=== PATIENT | female | born 1980 | race African-American/Black ===

== ENCOUNTER 2020-04-12 15:37 | Inpatient (IN) | payer OTHER ==
[2020-04-12] MEDS ORDERED: SODIUM CHLORIDE 1,000 ML IV STA (16:26)
[2020-04-12] MEDS ORDERED: morphine CARPU-JECT 2 MG/1 ML DISP.SYRIN IVPUSH ONE (16:28)
--- NOTE | 2020-04-12 16:55 | PDOC ---
History of Present Illness - General Chief Complaint: Sickle Cell Crisis Stated Complaint: SCC Time Seen by Provider: 04/12/20 16:24 History Source: Patient Exam Limitations: No Limitations - History of Present Illness Initial Comments: 04/12/20 16:54 40-year-old female presents to ED with sickle cell crisis. Patient states currently is having pain greater in her lower extremities but also has pain in her back and bilateral hands. Patient states last crisis was approximately 3 months ago and was treated with Dilaudid and ketamine. Patient denies chest pain, shortness of breath, fever, chills. Patient states has been on hydroxyurea but has lacked fluid intake patient denies menstruation currently and states last crisis required admission. Is this a multiple visit Asthma Patient?: No Timing/Duration: constant Severity: moderate Associated Symptoms: reports: other Past History - Travel History Traveled outside of the country in the last 30 days: No Close contact w/someone who was outside of country & ill: No - Medical History Allergies/Adverse Reactions: Allergies Allergy/AdvReac Type Severity Reaction Status Date / Time No Known Allergies Allergy Verified 04/12/20 15:43 COPD: No Other medical history: SICKLE CELL, BONE MARROW, FIBRO, ARTHRITIS - Immunization History Immunization Up to Date: No - Psycho-Social/Smoking History Patient Lives Alone: No Smoking History: Never smoked - Substance Abuse Hx (Audit-C & DAST Scrn) How often the patient has a drink containing alcohol: Never Score: In Men: 4 or > Positive; In Women: 3 or > Positive: 0 Screen Result (Pos requires Nsg. Audit-10AR): Negative In the last yr the pt used illegal drug/Rx for NonMed reason: No Score: Yes response is considered Positive: 0 Screen Result (Positive result requires Nsg. DAST-10): Negative Review of Systems - Review of Systems Able to Perform ROS?: No Is the patient limited Albanian proficient: No Constitutional: Yes: Weakness HEENTM: No: Symptoms Reported Respiratory: No: Symptoms reported Cardiac (ROS): No: Symptoms Reported ABD/GI: Yes: Poor Fluid Intake : No: Symptoms Reported Musculoskeletal: Yes: Joint Pain Integumentary: No: Symptoms Reported Neurological: No: Symptoms reported Endocrine: No: Symptoms Reported *Physical Exam - Vital Signs Last Vital Signs Temp Pulse Resp BP Pulse Ox 98.0 F 111 H 20 108/62 98 04/12/20 15:43 04/12/20 15:43 04/12/20 15:43 04/12/20 15:43 04/12/20 15:43 - Physical Exam General Appearance: Yes: Nourished, Appropriately Dressed. No: Apparent Distress HEENT: positive: EOMI, [place], Pharynx Normal (dry oral cavity), Pale Conjunctivae Neck: positive: Supple Respiratory/Chest: positive: Lungs Clear, Normal Breath Sounds. negative: Respiratory Distress, Accessory Muscle Use Cardiovascular: positive: Regular Rhythm, Tachycardia. negative: Murmur Gastrointestinal/Abdominal: positive: Soft. negative: Tenderness Extremity: positive: Normal Inspection Integumentary: positive: Normal Color, Warm, Moist Neurologic: positive: Motor Strength 5/5 (ambulatory) ED Treatment Course - LABORATORY CBC & Chemistry Diagram: 04/12/20 16:32 04/12/20 16:32 Medical Decision Making - Medical Decision Making 04/12/20 16:59 Chief complaint: Sickle cell crisis with joint pain greater in the lower extremities patient requesting Dilaudid and ketamine. Exam: Patient appears dry, conjunctiva pale, slightly tachycardic but otherwise normal physical exam. Plan: Fluids, labs, urine, offered morphine patient refused will await urine prior to administering Dilaudid 04/12/20 20:20 Laboratory Tests 04/12/20 04/12/20 04/12/20 16:32 16:32 16:33 WBC 15.3 H Hgb 7.2 L Hct 21.4 L Absolute Neuts (auto) 8.5 H Nucleated RBC % 4 H Retic Count 10.91 H* Sodium 143 Potassium 3.9 Chloride 109 H Carbon Dioxide 26 Anion Gap 8 BUN 13.6 Creatinine 1.2 Est GFR (CKD-EPI)AfAm 65.93 Est GFR (CKD-EPI)NonAf 56.88 Random Glucose 77 Calcium 8.2 L Magnesium 2.6 H Total Bilirubin 1.9 H AST 75 H ALT 49 Alkaline Phosphatase 186 H Total Protein 7.1 Albumin 3.3 L Urine Protein Negative Urine Glucose (UA) Negative Urine Ketones Negative Urine Blood Negative Urine Nitrite Negative Urine Bilirubin Negative Urine HCG, Qual Negative Will admit patient secondary to elevated reticulocyte count patient received Dilaudid. Micro blog sent to hospitalist Discharge - Discharge Information Problems reviewed: Yes Clinical Impression/Diagnosis: Sickle cell crisis - Admission Yes - Follow up/Referral Referrals: ON STAFF,NOT [Primary Care Provider] - - Patient Discharge Instructions - Post Discharge Activity
[2020-04-12] MEDS ORDERED: HYDROmorphone HCL CARPU-JECT 2 MG/1 ML DISP.SYRIN IVPUSH ONE ×2 (19:11→20:27)
[2020-04-12] MEDS ORDERED: HYDROmorphone HCl 2 MG/ML VIAL ONE ×2 (19:16→21:02)
[2020-04-12 19:43] LABS: BASO % 0.8 % (0-2.0); EOS % 3.5 % (0-4.5); HEMATOCRIT 21.4 % (32.4-45.2); HEMOGLOBIN 7.2 GM/dL (10.7-15.3); LYMPH % 31.6 % (8-40); MCH 33.9 pg (25.7-33.7); MCHC 33.6 g/dl (32.0-36.0); MEAN CELL VOLUME 100.8 fl (80-96); MEAN PLT VOLUME 8.6 fl (7.5-11.1); MONO % 8.3 % (3.8-10.2); NEUT % 55.8 % (42.8-82.8); PLATELET COUNT 290 K/MM3 (134-434); RBC 2.13 M/mm3 (3.60-5.2); RDW 18.1 % (11.6-15.6); RETICULOCYTES 10.91 % (0.5-1.5); WHITE BLOOD COUNT 15.3 K/mm3 (4.0-10.0)
[2020-04-12 20:11] LABS: PH,URINE 6.5 (5.0-8.0); URINE APPEARANCE CLEAR; URINE BILIRUBIN NEGATIVE (NEGATIVE); URINE COLOR YELLOW; URINE GLUCOSE (UA) NEGATIVE (NEGATIVE); URINE KETONE NEGATIVE (NEGATIVE); URINE LEUK ESTERASE NEGATIVE (NEGATIVE); URINE NITRITE NEGATIVE (NEGATIVE); URINE PROTEIN NEGATIVE (NEGATIVE)
[2020-04-12 20:14] LABS: HCG,QUALITATIVE URINE Negative
[2020-04-12 20:19] LABS: ALBUMIN 3.3 g/dl (3.4-5.0); BILIRUBIN,TOTAL 1.9 mg/dL (0.2-1); BLOOD UREA NITROGEN 13.6 mg/dL (7-18); CALCIUM 8.2 mg/dL (8.5-10.1); CREATININE 1.2 mg/dL (0.55-1.3); MAGNESIUM 2.6 mg/dL (1.8-2.4); POTASSIUM 3.9 mmol/L (3.5-5.1); TOT PROT 7.1 g/dl (6.4-8.2)
--- NOTE | 2020-04-12 23:01 | PN ---
Teaching Attending Note Name of Resident: Diana Madrigal ATTENDING PHYSICIAN STATEMENT I saw and evaluated the patient. I reviewed the resident's note and discussed the case with the resident. I agree with the resident's findings and plan as documented. SUBJECTIVE: 40 years old F with PMH of sickle cell anemia presented with generalized body aches, pain in b/l legs back and arms. She denies chest pain, SOB, cough, nausea,vomiting, fever last sickle cell crises was 3 months ago OBJECTIVE: Last Vital Signs Temp Pulse Resp BP Pulse Ox 98.0 F 111 H 20 108/62 98 04/12/20 15:43 04/12/20 15:43 04/12/20 15:43 04/12/20 15:43 04/12/20 15:43 GENERAL: The patient is awake, alert, and fully oriented, Nontoxic - in no acute distress. HEAD: Normocephalic, atraumatic. EYES: extraocular movements intact, sclera anicteric, conjunctiva clear. ENT: Normal voice, Moist mucous membranes. NECK: Normal range of motion, supple LUNGS: Breath sounds equal, clear to auscultation bilaterally. No wheezes, no rhonchi, no rales. HEART: Regular rate and rhythm, normal S1 and S2 without murmur, rub or gallop. ABDOMEN: Soft, nontender, No guarding, no rebound. No CVA tenderness EXTREMITIES: Normal range of motion, no edema. NEUROLOGICAL: No facial assymetry, Normal speech, No focal Neurological deficit chestv pain PSYCH: Normal mood, normal affect. SKIN: Warm, Dry, normal turgor, ASSESSMENT AND PLAN: sickle cell pain crises IV hydration NS 150 ml./hour pain management with dilaudid 1 mg q 4 PRN with benadryl 25 mg q 6 PO PRN cont hydroxyuria GEt CXR, EKG DVt ppx follow COVID test DVt ppx
[2020-04-13] MEDS ORDERED: HYDROmorphone HCL CARPU-JECT 2 MG/1 ML DISP.SYRIN IVPB STA (00:07)
[2020-04-13] MEDS ORDERED: MORPHINE SULFATE 2 MG/ML VIAL IVPUSH ONE (00:18)
[2020-04-13] MEDS ORDERED: MORPHINE SULFATE 2 MG/ML VIAL ONE (00:23)
[2020-04-13] MEDS ORDERED: diphenhydrAMINE HCL 25 MG CAPSULE (FP) PO ONE (00:28)
[2020-04-13] MEDS ORDERED: HYDROmorphone HCl 2 MG/ML VIAL ONE (00:28)
[2020-04-13] MEDS ORDERED: HYDROmorphone HCl 2 MG/ML VIAL IVPUSH ONE (00:28)
[2020-04-13] MEDS ORDERED: KETAMINE HCL 200 MG/20 ML VIAL IVPUSH PRN (01:03)
--- NOTE | 2020-04-13 01:18 | HP ---
CHIEF COMPLAINT: Chest pain x 2days, b/l leg pain x 1 PCP: Not local (M[facility]) HISTORY OF PRESENT ILLNESS: 40 y/o female with a PMH of SCD, fibromyalgia, migraine,colitis, arthritis, failed bone marrow transplantation(2010) presents to the emergency with chest pain x 2 days and b/l leg pain x 1day. Pain was sudden in onset, sharp and undulating in nature but no radiation, relieved by dilaudid and ketamine spray, worsened by movement and with a severity of 10/10. Patient denies fever, hx of trauma, nausea, vomiting, diarrhea, constipation, hearing/visual impairment, dizziness, dysuria, urgency,chest pain, cough and SOB. ER course was notable for: (1) s/p dilauded (2) Tachypnea (3) IVF (4) Cont hydroxyuria (5) Get CXR, EKG (6) DVt ppx (7) Follow-up COVID test PAST SURGICAL HISTORY: Bone marrow transplantation (2010), lasted a year, then failed Social History: Limited by pain Allergies: HEPARIN COOK RELIEF: LMP was 5 days ago, + menorrhagia HOME MEDICATIONS: Patient handed over her phone for meds records. She did not want to talk much Diclofenac 60mg b.d Duloxetin 60mg b.d Propranolol 10mg sumatriptan 100mg upon headache, 2 hrs repeat if needed, max 2x/days Dilaudid 8-16mg for mild to severe pain Lyrica 200mg 3x daily Butalbital 50-325-40 Q6H Zolpidem 1-2 tabs at bed time Methocarbamol 500mg 2tabs 2x/day Folic acid 1mg 1 tab daily Pantoprazol 40mg daily Vit B12 1000mcg daily Ketamine 5mg/o.1ml: nasal spray 3-4x daily Fluticasone propionate 50mg/spray Vit D3 2000 IU Tampza 36mg( 3 tabs Q12) REVIEW OF SYSTEMS: Negative except as in HPI Vital Signs - 24 hr 04/12/20 15:43 Temperature 98.0 F Pulse Rate 111 H Respiratory 20 Rate Blood Pressure 108/62 O2 Sat by Pulse 98 Oximetry (%) GENERAL: Awake, alert, and fully oriented, anxious and in severe painful distress. HEAD: No signs of trauma. EYES: Conjunctiva clear. NECK: Normal range of motion LUNGS: Vesicular breath sounds on b/l lungs carmona to auscultation. No wheezes, and no crackles. No accessory muscle use. Mildly tachpnoic because of pain. RR 20/min HEART: S1 and S2 regular rate and rytm, no murmur, rub or gallop. ABDOMEN: Soft, nontender, no guarding, no rebound. MUSCULOSKELETAL: Normal range of motion, no peripheral edema NEUROLOGICAL: Alert, oriented x 3, normal speech, no visual or hearing impairment PSYCHIATRIC: Appropriate mood and affect. SKIN: Warm, dry, normal turgor, normal capillary refill. Laboratory Results - last 24 hr 04/12/20 04/12/20 04/12/20 16:32 16:32 16:33 WBC 15.3 H RBC 2.13 L Hgb 7.2 L Hct 21.4 L MCV 100.8 H MCH 33.9 H MCHC 33.6 RDW 18.1 H Plt Count 290 MPV 8.6 Absolute Neuts (auto) 8.5 H Neutrophils % 55.8 Lymphocytes % 31.6 Monocytes % 8.3 Eosinophils % 3.5 Basophils % 0.8 Nucleated RBC % 4 H Retic Count 10.91 H* Sodium 143 Potassium 3.9 Chloride 109 H Carbon Dioxide 26 Anion Gap 8 BUN 13.6 Creatinine 1.2 Est GFR (CKD-EPI)AfAm 65.93 Est GFR (CKD-EPI)NonAf 56.88 Random Glucose 77 Calcium 8.2 L Magnesium 2.6 H Total Bilirubin 1.9 H AST 75 H ALT 49 Alkaline Phosphatase 186 H Total Protein 7.1 Albumin 3.3 L Urine Color Yellow Urine Appearance Clear Urine pH 6.5 Ur Specific [place] 1.011 Urine Protein Negative Urine Glucose (UA) Negative Urine Ketones Negative Urine Blood Negative Urine Nitrite Negative Urine Bilirubin Negative Urine Urobilinogen 1.0 Ur Leukocyte Esterase Negative Urine HCG, Qual Negative ASSESSMENT/PLAN: 40 y/o female here for sickle cell crisis with a PMH SCD, fibromyalgia, migraine,colitis, arthritis, failed bone marrow transplantation(2010) presents to the emergency with sudden chest pain x 2 days and b/l leg pain x 1day. # sickle cell crisis - dilauded 2 mg iv q6h - benadryl 25 mg q 6 PO PRN - LR @ 125 - Not hypoxic so will hold off o2 supplementation # DVT PPX - Possible heparin allergy, Cr 1.2 so SCD and regular ambulation for now # FEN - LR @ 125 - Monitor and replete - Reg diet # Disposition - Admit to med/surg - Follow COVID test Get EKG, CXR reports - Continue hydroxyurea Visit type - Emergency Visit Emergency Visit: Yes ED Registration Date: 04/12/20 Care time: The patient presented to the Emergency Department on the above date and was hospitalized for further evaluation of their emergent condition. - New Patient This patient is new to me today: Yes Date on this admission: 04/13/20 - Critical Care Critical Care patient: No ATTENDING PHYSICIAN STATEMENT I saw and evaluated the patient. I reviewed the resident's note and discussed the case with the resident. I agree with the resident's findings and plan as documented. SUBJECTIVE: OBJECTIVE: ASSESSMENT AND PLAN:
[2020-04-13] MEDS ORDERED: HYDROmorphone HCl 2 MG/ML VIAL IVPUSH PRN ×2 (01:55→09:13)
[2020-04-13] MEDS: LACTATED RINGERS SOLUTION 1,000 ML/1,000 ML INFUS.BAG IV SCH ×2 (02:48→15:00)
[2020-04-13 05:57] VITALS: BMI 25.2
[2020-04-13] MEDS ORDERED: HEPARIN NA (PORCINE) 5,000 UNITS/ML 1ML VIAL SQ SCH (06:00)
[2020-04-13] MEDS ORDERED: SENNOSIDES 8.6MG TABLET (FP) PO PRN (06:57)
--- NOTE | 2020-04-13 09:18 | EKG ---
Test Reason : Blood Pressure : / mmHG Vent. Rate : 095 BPM Atrial Rate : 095 BPM P-R Int : 174 ms QRS Dur : 092 ms QT Int : 372 ms P-R-T Axes : 047 041 047 degrees QTc Int : 467 ms NORMAL SINUS RHYTHM POSSIBLE LEFT ATRIAL ENLARGEMENT BORDERLINE ECG NO PREVIOUS ECGS AVAILABLE Confirmed by MD MARK, CHUCHO ([id number]) on 04/13/2020 9:17:45 AM Referred By: Confirmed By:CHUCHO FLORES MD
[2020-04-13] MEDS ORDERED: PT OWN MED DRAWER 7, Y5N ONE ×3 (09:42→21:28)
[2020-04-13] MEDS: DOCUSATE SODIUM 100 MG CAPSULE (FP) PO SCH ×3 (09:49→21:16)
[2020-04-13] MEDS: FOLIC ACID 1 MG TABLET (FP) PO SCH (09:50)
[2020-04-13] MEDS: CHOLECALCIFEROL (VIT D3) 1,000 UNIT (25 MCG) TABLET PO SCH (09:50)
[2020-04-13] MEDS: CYANOCOBALAMIN 1,000 MCG TABLET (FP) PO SCH (09:50)
--- NOTE | 2020-04-13 12:03 | PN ---
Physical Exam: SUBJECTIVE: Patient seen and examined at bedside this morning. Patient reported she has generalized pain, in her torso and limbs. She denies any sick contacts or recent illness. She reports having episodes of SCC usually during winter time. She denies fevers, chills, headache, cough,colds, diarrhea, urinary symptoms. Patient reports she does not follow up with any morgue keeper, did not want to tell who prescribes her medications or her pharmacy. Patient did not want to answer any more questions. OBJECTIVE: Vital Signs Temperature 99.1 F 04/13/20 08:40 Pulse Rate 93 H 04/13/20 08:40 Respiratory Rate 04/13/20 08:40 Blood Pressure 110/62 04/13/20 08:40 O2 Sat by Pulse Oximetry (%) 94 L 04/13/20 08:40 GENERAL: The patient is awake, alert, and fully oriented, lying comfortably in bed. HEAD: Normal with no signs of trauma. NECK: full range of motion, supple. LUNGS: Breath sounds equal, clear to auscultation bilaterally HEART: Regular rate and rhythm, S1, S2 ABDOMEN: Soft, very tender on light palpation diffusely, nondistended, normoactive bowel sounds EXTREMITIES: 2+ pulses, warm, well-perfused, no edema. +Tender to palpation b/l LE SKIN: Warm, dry, normal turgor Laboratory Results - last 24 hr 04/12/20 04/12/20 04/12/20 16:32 16:32 16:33 WBC 15.3 H RBC 2.13 L Hgb 7.2 L Hct 21.4 L MCV 100.8 H MCH 33.9 H MCHC 33.6 RDW 18.1 H Plt Count 290 MPV 8.6 Absolute Neuts (auto) 8.5 H Neutrophils % 55.8 Lymphocytes % 31.6 Monocytes % 8.3 Eosinophils % 3.5 Basophils % 0.8 Nucleated RBC % 4 H Retic Count 10.91 H* Sodium 143 Potassium 3.9 Chloride 109 H Carbon Dioxide 26 Anion Gap 8 BUN 13.6 Creatinine 1.2 Est GFR (CKD-EPI)AfAm 65.93 Est GFR (CKD-EPI)NonAf 56.88 Random Glucose 77 Calcium 8.2 L Magnesium 2.6 H Total Bilirubin 1.9 H AST 75 H ALT 49 Alkaline Phosphatase 186 H Total Protein 7.1 Albumin 3.3 L Urine Color Yellow Urine Appearance Clear Urine pH 6.5 Ur Specific [place] 1.011 Urine Protein Negative Urine Glucose (UA) Negative Urine Ketones Negative Urine Blood Negative Urine Nitrite Negative Urine Bilirubin Negative Urine Urobilinogen 1.0 Ur Leukocyte Esterase Negative Urine HCG, Qual Negative Active Medications Generic Name Dose Route Start Last Admin Trade Name Freq PRN Reason Stop Dose Admin Cholecalciferol 2,000 unit 04/13/20 10:00 04/13/20 09:50 Vitamin D3 - PO 2,000 unit DAILY LEILA Administration Cyanocobalamin 1,000 mcg 04/13/20 10:00 04/13/20 09:50 Vitamin B12 - PO 1,000 mcg DAILY LEILA Administration Docusate Sodium 100 mg 04/13/20 10:00 04/13/20 09:58 Colace - PO Not Given BID LEILA Duloxetine HCl 60 mg 04/13/20 22:00 Cymbalta - PO BID LEILA Folic Acid 1 mg 04/13/20 10:00 04/13/20 09:50 Folic Acid - PO 1 mg DAILY LEILA Administration Hydromorphone HCl 1 mg 04/13/20 09:13 Dilaudid Vial - IVPUSH Q4H PRN PAIN LEVEL 6-10 Lactated Ringer's 1,000 ml in 1,000 mls @ 125 mls/hr 04/13/20 01:30 04/13/20 02:48 Lactated Ringers Solution IV 125 mls/hr ASDIR LEILA Administration Propranolol HCl 10 mg 04/13/20 22:00 Inderal - PO BID LEILA Senna 2 tab 04/13/20 06:57 Senna - PO HS PRN CONSTIPATION ASSESSMENT/PLAN: Patient is a 40 y/o female with a PMH of SCD, fibromyalgia, migraine, colitis, arthritis, failed bone marrow transplantation(2010) presents to the emergency with chest pain x 2 days and b/l leg pain x 1day. #Sickle cell crisis -pain control with dilaudid -IVF -repeat labs pending -CXR no acute pathology, UA unremarkable -macrocytic anemia, B12/folate pending -elevated Tbili, fractionated bili pending -supplemental oxygen to keep sPO2> 90% -Heme-onc (Dr. Nolen) consulted. Recs appreciated #FEN -IV LR @125cc/hr -routine bmp monitoring -Regular diet #Prophylaxis -SCDs #Disposition -full code -med surg Visit type - Emergency Visit Emergency Visit: Yes ED Registration Date: 04/12/20 Care time: The patient presented to the Emergency Department on the above date and was hospitalized for further evaluation of their emergent condition. - New Patient This patient is new to me today: Yes Date on this admission: 04/13/20 - Critical Care Critical Care patient: No ATTENDING PHYSICIAN STATEMENT I saw and evaluated the patient. I reviewed the resident's note and discussed the case with the resident. I agree with the resident's findings and plan as documented. SUBJECTIVE: OBJECTIVE: ASSESSMENT AND PLAN:
[2020-04-13 13:37] LABS: BASO % 0.7 % (0-2.0); EOS % 4.2 % (0-4.5); HEMATOCRIT 23.6 % (32.4-45.2); HEMOGLOBIN 7.9 GM/dL (10.7-15.3); LYMPH % 29.2 % (8-40); MCH 34.2 pg (25.7-33.7); MCHC 33.6 g/dl (32.0-36.0); MEAN CELL VOLUME 101.9 fl (80-96); MEAN PLT VOLUME 8.9 fl (7.5-11.1); MONO % 8.9 % (3.8-10.2); PLATELET COUNT 279 K/MM3 (134-434); RBC 2.32 M/mm3 (3.60-5.2); RDW 18.6 % (11.6-15.6); WHITE BLOOD COUNT 10.6 K/mm3 (4.0-10.0)
--- NOTE | 2020-04-13 14:44 | CONSULT ---
Consultation: REQUESTING PROVIDER: Dr. Curtis CONSULT REQUEST: We have been asked to medically evaluate this patient for sickle cell crisis. HISTORY OF PRESENT ILLNESS: Pt. is a 40 y.o. F w/ PMHx. of Sickle Cell(s/p failed BMT in 2010), Fibromyalgia, Marrero's Palsy, Hx. of C.Diff, and Hx. of DVT? presents with chest pain and b/l leg pain over the last 2 days. Pt. resistant to answering questions and points to her phone for reference to her medical history. Pt. states she follows with Dr. Russell in [place] who prescribes her medications and manages her Sickle Cell. Call placed to [facility] ([phone]) confirming that Pt. is seen there. [facility] unable to give detailed history and stated that Physician was seeing Pt.s. [facility] able to confirm that Pt. was seen there last in person in November and has had subsequent telephone visits. Per loan secretary no prescriptions for Dilaudid or Hydromorphone were seen in her chart. Pt. endorses headache on both sides for unknown duration. Pt. endorses shortness of breath but denies. Pt. denies any fever, chills, nausea, vomiting or diarrhea. Pt. endorses Hx. of Lupus in her mother. Pt. denies taking Hydroxyurea or any other medications other than those on the list. Pt. then became more defensive and asked if hydroxyurea is the only medication that people with sickle cell takes. Pt. states that the pain medication that she has received so far does not even touch her pain. She states that she takes 8mg TID PRN at home and was doing so prior to hospital arrival. Pt. states that the home dose she was taking was not making an impact in her pain, therefore she came to the hospital. Pt. is allergic to Heparin which causes HIT. REVIEW OF SYSTEMS: As above PHYSICAL EXAMINATION Vital Signs - 24 hr 04/12/20 04/12/20 04/12/20 15:43 20:26 23:25 Temperature 98.0 F Pulse Rate 111 H Pulse Rate [ Apical] Respiratory 20 Rate Blood Pressure 108/62 Blood Pressure [Left Arm] O2 Sat by Pulse 98 94 L 100 Oximetry (%) 04/13/20 04/13/20 04/13/20 03:07 04:30 08:40 Temperature 99.2 F 99.1 F Pulse Rate 81 93 H Pulse Rate [ 76 Apical] Respiratory 20 20 20 Rate Blood Pressure 112/56 L 110/62 Blood Pressure 106/62 [Left Arm] O2 Sat by Pulse 100 94 L 94 L Oximetry (%) GENERAL: Awake, alert, and fully oriented, in acute distress 2/2 pain. HEAD: Normal with no signs of trauma. EYES: Extraocular movements intact, sclera anicteric, conjunctiva clear. LUNGS: Breath sounds equal, clear to auscultation bilaterally. No wheezes, and no crackles. No accessory muscle use. HEART: Regular rate and rhythm, normal S1 and S2 without murmur ABDOMEN: Soft, nontender, not distended, normoactive bowel sounds, no guarding, no rebound, no masses. MUSCULOSKELETAL: Normal range of motion at all joints. No bony deformities or tenderness. UPPER EXTREMITIES: warm, well-perfused. No peripheral edema. LOWER EXTREMITIES: warm, well-perfused. No calf tenderness. No peripheral edema. NEUROLOGICAL: No focal deficits appreciated Normal speech. Gait not assessed PSYCHIATRIC: Agitated, defensive SKIN: Warm, dry, normal turgor, R. superior and anterior scar(surgical?) Laboratory Results - last 24 hr 04/12/20 04/12/20 04/12/20 16:32 16:32 16:33 WBC 15.3 H RBC 2.13 L Hgb 7.2 L Hct 21.4 L MCV 100.8 H MCH 33.9 H MCHC 33.6 RDW 18.1 H Plt Count 290 MPV 8.6 Absolute Neuts (auto) 8.5 H Neutrophils % 55.8 Lymphocytes % 31.6 Monocytes % 8.3 Eosinophils % 3.5 Basophils % 0.8 Nucleated RBC % 4 H Retic Count 10.91 H* Sodium 143 Potassium 3.9 Chloride 109 H Carbon Dioxide 26 Anion Gap 8 BUN 13.6 Creatinine 1.2 Est GFR (CKD-EPI)AfAm 65.93 Est GFR (CKD-EPI)NonAf 56.88 Random Glucose 77 Calcium 8.2 L Phosphorus Magnesium 2.6 H Total Bilirubin 1.9 H Direct Bilirubin AST 75 H ALT 49 Alkaline Phosphatase 186 H LD Total Total Protein 7.1 Albumin 3.3 L Vitamin B12 Serum Folate Urine Color Yellow Urine Appearance Clear Urine pH 6.5 Ur Specific [place] 1.011 Urine Protein Negative Urine Glucose (UA) Negative Urine Ketones Negative Urine Blood Negative Urine Nitrite Negative Urine Bilirubin Negative Urine Urobilinogen 1.0 Ur Leukocyte Esterase Negative Urine HCG, Qual Negative 04/13/20 04/13/20 04/13/20 12:35 12:35 12:35 WBC 10.6 H RBC 2.32 L Hgb 7.9 L Hct 23.6 L MCV 101.9 H MCH 34.2 H MCHC 33.6 RDW 18.6 H Plt Count 279 MPV 8.9 Absolute Neuts (auto) 6.1 Neutrophils % 57.0 Lymphocytes % 29.2 Monocytes % 8.9 Eosinophils % 4.2 Basophils % 0.7 Nucleated RBC % 3 H Retic Count Sodium Cancelled Potassium Cancelled Chloride Cancelled Carbon Dioxide Cancelled Anion Gap Cancelled BUN Cancelled Creatinine Cancelled Est GFR (CKD-EPI)AfAm Cancelled Est GFR (CKD-EPI)NonAf Cancelled Random Glucose Cancelled Calcium Cancelled Phosphorus Cancelled Magnesium Cancelled Total Bilirubin Cancelled Direct Bilirubin Cancelled AST Cancelled ALT Cancelled Alkaline Phosphatase Cancelled LD Total 440 H Total Protein Cancelled Albumin Cancelled Vitamin B12 Cancelled Serum Folate Cancelled Urine Color Urine Appearance Urine pH Ur Specific [place] Urine Protein Urine Glucose (UA) Urine Ketones Urine Blood Urine Nitrite Urine Bilirubin Urine Urobilinogen Ur Leukocyte Esterase Urine HCG, Qual Active Medications Generic Name Dose Route Start Last Admin Trade Name Luci PRN Reason Stop Dose Admin Cholecalciferol 2,000 unit 04/13/20 10:00 04/13/20 09:50 Vitamin D3 - PO 2,000 unit DAILY LEILA Administration Cyanocobalamin 1,000 mcg 04/13/20 10:00 04/13/20 09:50 Vitamin B12 - PO 1,000 mcg DAILY LEILA Administration Docusate Sodium 100 mg 04/13/20 10:00 04/13/20 09:58 Colace - PO Not Given BID LEILA Duloxetine HCl 60 mg 04/13/20 22:00 Cymbalta - PO BID LEILA Folic Acid 1 mg 04/13/20 10:00 04/13/20 09:50 Folic Acid - PO 1 mg DAILY LEILA Administration Hydromorphone HCl 1 mg 04/13/20 09:13 Dilaudid Vial - IVPUSH Q4H PRN PAIN LEVEL 6-10 Lactated Ringer's 1,000 ml in 1,000 mls @ 125 mls/hr 04/13/20 01:30 04/13/20 02:48 Lactated Ringers Solution IV 125 mls/hr ASDIR LEILA Administration Propranolol HCl 10 mg 04/13/20 22:00 Inderal - PO BID LEILA Senna 2 tab 04/13/20 06:57 Senna - PO HS PRN CONSTIPATION ASSESSMENT/PLAN:Pt. is a 40 y.o. F w/ PMHx. of Sickle Cell(s/p failed BMT in 2010), Fibromyalgia, Marrero's Palsy, Hx. of C.Diff, and Hx. of DVT? presents with chest pain and b/l leg pain over the last 2 days. We are called to assess sickle cell crisis. #Sickle Cell Crisis IVF Pain management with opiates attempted to call Dr. Russell, will reattempt--> obtain records of recent studies/labs at [employer] [facility] No indication to start Hydroxyurea during SCC f/u b12 and folate macroytic anemia improving leukocytosis improving CXR Negative Dispo: We will continue to follow the patient. Thank you for this consultative opportunity. Visit type - Emergency Visit Emergency Visit: Yes ED Registration Date: 04/12/20 Care time: The patient presented to the Emergency Department on the above date and was hospitalized for further evaluation of their emergent condition. - New Patient This patient is new to me today: Yes Date on this admission: 04/13/20 - Critical Care Critical Care patient: No ATTENDING PHYSICIAN STATEMENT I saw and evaluated the patient. I reviewed the resident's note and discussed the case with the resident. I agree with the resident's findings and plan as documented. SUBJECTIVE: OBJECTIVE: ASSESSMENT AND PLAN:
[2020-04-13 14:46] LABS: ALBUMIN 3.3 g/dl (3.4-5.0); BILIRUBIN,DIRECT 0.6 mg/dL (0.0-0.2); BILIRUBIN,TOTAL 1.8 mg/dL (0.2-1); BLOOD UREA NITROGEN 11.1 mg/dL (7-18); CALCIUM 8.2 mg/dL (8.5-10.1); CREATININE 0.9 mg/dL (0.55-1.3); MAGNESIUM 2.5 mg/dL (1.8-2.4); PHOSPHOROUS 3.3 mg/dL (2.5-4.9); POTASSIUM 3.7 mmol/L (3.5-5.1); TOT PROT 7.2 g/dl (6.4-8.2)
[2020-04-13] MEDS: HYDROmorphone HCl 2 MG/ML VIAL IVPB PRN (21:16)
[2020-04-13] MEDS: DULoxetine HCL 30 MG CAPSULE.DR PO SCH (21:16)
--- NOTE | 2020-04-13 23:00 | PN ---
Teaching Attending Note Name of Resident: Beck Mackay ATTENDING PHYSICIAN STATEMENT I saw and evaluated the patient. I reviewed the resident's note and discussed the case with the resident. I agree with the resident's findings and plan as documented. ASSESSMENT AND PLAN: 40 y.o. F w/ PMHx. of Sickle Cell(s/p failed BMT in 2010), Fibromyalgia, Marrero's Palsy, Hx. of C.Diff, and Hx. of DVT?, h/o HIT presents with chest pain and b/l leg pain over the last 2 days. Reports Lt. leg pain #Sickle Cell Crisis On IV fluids Increase pain control --dilaudid to Q 3hrs. add benadryl Pain management consult folic acid incentive spirometer h/o HIT --- use fondaparinux as DVT prophylaxis f/u Dr. Russell, [place] major donor coordinator in [place] on d/c
[2020-04-14] MEDS: LACTATED RINGERS SOLUTION 1,000 ML/1,000 ML INFUS.BAG IV SCH ×2 (00:23→06:09)
[2020-04-14] MEDS: HYDROmorphone HCl 2 MG/ML VIAL IVPB PRN ×3 (07:09→18:14)
[2020-04-14 07:46] LABS: BASO % 0.6 % (0-2.0); EOS % 2.9 % (0-4.5); HEMATOCRIT 23.1 % (32.4-45.2); HEMOGLOBIN 7.6 GM/dL (10.7-15.3); LYMPH % 29.7 % (8-40); MCH 33.5 pg (25.7-33.7); MCHC 33.1 g/dl (32.0-36.0); MEAN CELL VOLUME 101.2 fl (80-96); MEAN PLT VOLUME 8.7 fl (7.5-11.1); MONO % 6.6 % (3.8-10.2); NEUT % 60.2 % (42.8-82.8); PLATELET COUNT 262 K/MM3 (134-434); RBC 2.28 M/mm3 (3.60-5.2); RDW 17.7 % (11.6-15.6); WHITE BLOOD COUNT 9.4 K/mm3 (4.0-10.0)
[2020-04-14 07:52] LABS: ALBUMIN 3.2 g/dl (3.4-5.0); BLOOD UREA NITROGEN 8.1 mg/dL (7-18); CALCIUM 8.3 mg/dL (8.5-10.1); CREATININE 0.8 mg/dL (0.55-1.3); MAGNESIUM 2.3 mg/dL (1.8-2.4); PHOSPHOROUS 3.4 mg/dL (2.5-4.9); POTASSIUM 3.8 mmol/L (3.5-5.1); TOT PROT 7.1 g/dl (6.4-8.2)
[2020-04-14 08:39] LABS: ANISOCYTOSIS 3+; MACROCYTOSIS 1+; OVALOCYTE 1+; PLATELET ESTIMATE NORMAL; TARGET CELLS 2+
[2020-04-14] MEDS ORDERED: PT OWN MED DRAWER 7, Y5N ONE ×5 (09:51→21:08)
[2020-04-14] MEDS: CHOLECALCIFEROL (VIT D3) 1,000 UNIT (25 MCG) TABLET PO SCH (10:12)
[2020-04-14] MEDS: CYANOCOBALAMIN 1,000 MCG TABLET (FP) PO SCH (10:12)
[2020-04-14] MEDS: DULoxetine HCL 30 MG CAPSULE.DR PO SCH ×2 (10:12→21:46)
[2020-04-14] MEDS: FOLIC ACID 1 MG TABLET (FP) PO SCH (10:12)
[2020-04-14] MEDS: DOCUSATE SODIUM 100 MG CAPSULE (FP) PO SCH ×2 (10:12→21:45)
[2020-04-14] MEDS: FONDAPARINUX SODIUM 2.5 MG/0.5 ML DISP.SYRIN SQ SCH (10:13)
--- NOTE | 2020-04-14 12:26 | PN ---
Physical Exam: SUBJECTIVE: Patient seen and examined. Pt. complaining of Nausea this AM. Pt. states pain is better than yesterday, but that it comes and goes. Pt. states that breathing in the same as yesterday. Pt. states she had "low-grade fevers overnight" Per chart Pt. had a TMax of 99.3. OBJECTIVE: Vital Signs Period Temp Pulse Resp BP Sys/Montez Pulse Ox Last 24 Hr 97.9 F-99.3 F 60-94 20-20 100-119/52-71 98-100 GENERAL: Awake, alert, and fully oriented, in no acute distress. HEAD: Normal with no signs of trauma. EYES: Extraocular movements intact, sclera anicteric, conjunctiva clear. LUNGS: Breath sounds equal, clear to auscultation bilaterally. No wheezes, and no crackles. No accessory muscle use. HEART: Regular rate and rhythm, normal S1 and S2 without murmur ABDOMEN: Soft, nontender, not distended, normoactive bowel sounds, no guarding, no rebound, no masses. MUSCULOSKELETAL: Normal range of motion at all joints. No bony deformities or tenderness. UPPER EXTREMITIES: warm, well-perfused. No peripheral edema. LOWER EXTREMITIES: 2+ dorsal pedal pulse, warm, well-perfused. No calf tender ness. No peripheral edema. NEUROLOGICAL: No focal deficits appreciated Normal speech. Gait not assessed PSYCHIATRIC: Cooperative SKIN: Warm, dry, normal turgor, R. superior and anterior chest scar(surgical?) Laboratory Results - last 24 hr 04/12/20 04/13/20 04/13/20 23:30 12:35 12:35 WBC 10.6 H RBC 2.32 L Hgb 7.9 L Hct 23.6 L MCV 101.9 H MCH 34.2 H MCHC 33.6 RDW 18.6 H Plt Count 279 MPV 8.9 Absolute Neuts (auto) 6.1 Neutrophils % 57.0 Neutrophils % (Manual) Band Neutrophils % Lymphocytes % 29.2 Lymphocytes % (Manual) Monocytes % 8.9 Monocytes % (Manual) Eosinophils % 4.2 Eosinophils % (Manual) Basophils % 0.7 Basophils % (Manual) Myelocytes % (Man) Promyelocytes % (Man) Blast Cells % (Manual) Nucleated RBC % 3 H Metamyelocytes Hypochromia Platelet Estimate Polychromasia Poikilocytosis Anisocytosis Microcytosis Macrocytosis Target Cells Ovalocytes Stomatocytes Sodium Cancelled Potassium Cancelled Chloride Cancelled Carbon Dioxide Cancelled Anion Gap Cancelled BUN Cancelled Creatinine Cancelled Est GFR (CKD-EPI)AfAm Cancelled Est GFR (CKD-EPI)NonAf Cancelled Random Glucose Cancelled Calcium Cancelled Phosphorus Cancelled Magnesium Cancelled Total Bilirubin Cancelled Direct Bilirubin Cancelled AST Cancelled ALT Cancelled Alkaline Phosphatase Cancelled LD Total Total Protein Cancelled Albumin Cancelled Vitamin B12 Cancelled Serum Folate Cancelled COVID-19 (DEBORAH) Not detected 04/13/20 04/14/20 04/14/20 12:35 06:55 06:55 WBC 9.4 RBC 2.28 L Hgb 7.6 L Hct 23.1 L MCV 101.2 H MCH 33.5 MCHC 33.1 RDW 17.7 H Plt Count 262 MPV 8.7 Absolute Neuts (auto) 6.0 Neutrophils % 60.2 Neutrophils % (Manual) 63.3 Band Neutrophils % 0.0 Lymphocytes % 29.7 Lymphocytes % (Manual) 33.7 Monocytes % 6.6 Monocytes % (Manual) 2 L Eosinophils % 2.9 Eosinophils % (Manual) 1.0 Basophils % 0.6 Basophils % (Manual) 0.0 Myelocytes % (Man) 0 Promyelocytes % (Man) 0 Blast Cells % (Manual) 0 Nucleated RBC % 3 H Metamyelocytes 0 Hypochromia 0 Platelet Estimate Normal Polychromasia 2+ Poikilocytosis 2+ Anisocytosis 3+ Microcytosis 2+ Macrocytosis 1+ Target Cells 2+ Ovalocytes 1+ Stomatocytes 1+ Sodium 143 141 Potassium 3.7 3.8 Chloride 111 H 109 H Carbon Dioxide 23 23 Anion Gap 9 9 BUN 11.1 8.1 Creatinine 0.9 0.8 Est GFR (CKD-EPI)AfAm 93.35 107.64 Est GFR (CKD-EPI)NonAf 80.54 92.87 Random Glucose 79 89 Calcium 8.2 L 8.3 L Phosphorus 3.3 3.4 Magnesium 2.5 H 2.3 Total Bilirubin 1.8 H 2.0 H Direct Bilirubin 0.6 H AST 58 H 58 H ALT 43 40 Alkaline Phosphatase 178 H 178 H LD Total 440 H Total Protein 7.2 7.1 Albumin 3.3 L 3.2 L Vitamin B12 2563 H Serum Folate 42 H COVID-19 (DEBORAH) Active Medications Generic Name Dose Route Start Last Admin Trade Name Freq PRN Reason Stop Dose Admin Cholecalciferol 2,000 unit 04/13/20 10:00 04/14/20 10:12 Vitamin D3 - PO 2,000 unit DAILY LEILA Administration Cyanocobalamin 1,000 mcg 04/13/20 10:00 04/14/20 10:12 Vitamin B12 - PO 1,000 mcg DAILY LEILA Administration Diphenhydramine HCl 25 mg 04/13/20 18:51 04/13/20 21:33 Benadryl Injection - IVPB 25 mg Q6H PRN Administration FOR ITCHING Docusate Sodium 100 mg 04/13/20 10:00 04/14/20 10:12 Colace - PO 100 mg BID LEILA Administration Duloxetine HCl 60 mg 04/13/20 22:00 04/14/20 10:12 Cymbalta - PO 60 mg BID LEILA Administration Folic Acid 1 mg 04/13/20 10:00 04/14/20 10:12 Folic Acid - PO 1 mg DAILY LEILA Administration Fondaparinux 2.5 mg 04/14/20 10:00 04/14/20 10:13 Arixtra (Restricted) - SQ 2.5 mg DAILY LEILA Administration Hydromorphone HCl 1 mg 04/13/20 18:45 04/14/20 10:30 Dilaudid Vial - IVPB 1 mg Q3H PRN Administration PAIN LEVEL 6-10 Lactated Ringer's 1,000 ml in 1,000 mls @ 125 mls/hr 04/13/20 01:30 04/14/20 06:09 Lactated Ringers Solution IV Not Given ASDIR LEILA Pneumococcal 13-Valent Conj Vacc 0.5 ml 04/13/20 17:06 Prevnar 13 Syringe - IM 04/13/20 17:07 .ONCE ONE Propranolol HCl 10 mg 04/13/20 22:00 04/14/20 10:13 Inderal - PO 10 mg BID LEILA Administration Senna 2 tab 04/13/20 06:57 Senna - PO HS PRN CONSTIPATION Trimethobenzamide HCl 300 mg 04/14/20 12:24 Tigan - PO 04/14/20 12:25 ONCE ONE ASSESSMENT/PLAN: t. is a 40 y.o. F w/ PMHx. of Sickle Cell(s/p failed BMT in 2010), Fibromyalgia, Marrero's Palsy, Hx. of C.Diff, and Hx. of DVT? presents with chest pain and b/l leg pain over the last 2 days. We are called to assess sickle cell crisis. #Sickle Cell Crisis/Painful episode IVF Pain management with opiates; Pain management consult appreciated attempted to call Dr. Russell, will reattempt--> obtain records of recent studies/labs at [facility] No indication to start Hydroxyurea during SCC/painful episode B12 and Folate elevated macroytic anemia improving leukocytosis improving CXR Negative Tigan x 1 and Rpt. EKG ordered for nausea, last QTc was 467 Abd. US negative for acute pathology. Dilated CBD is expected in Pt. that is s/p CCY. Macrocytosis likely due to reticulocytosis which is common in Pt.s with Sickle Cell Disease Discussed with primary team Visit type - Emergency Visit Emergency Visit: Yes ED Registration Date: 04/12/20 Care time: The patient presented to the Emergency Department on the above date and was hospitalized for further evaluation of their emergent condition. - New Patient This patient is new to me today: No - Critical Care Critical Care patient: No - Discharge Referral Referred to [facility] No ATTENDING PHYSICIAN STATEMENT I saw and evaluated the patient. I reviewed the resident's note and discussed the case with the resident. I agree with the resident's findings and plan as documented. SUBJECTIVE: OBJECTIVE: ASSESSMENT AND PLAN:
[2020-04-14] MEDS ORDERED: TRIMETHOBENZAMIDE HCL 300 MG CAPSULE PO ONE (13:00)
[2020-04-14] MEDS ORDERED: PROCHLORPERAZINE INJECTION 10 MG/2 ML VIAL IVPB PRN (14:26)
--- NOTE | 2020-04-14 16:25 | EKG ---
Test Reason : Blood Pressure : / mmHG Vent. Rate : 061 BPM Atrial Rate : 061 BPM P-R Int : 194 ms QRS Dur : 086 ms QT Int : 448 ms P-R-T Axes : 053 050 058 degrees QTc Int : 450 ms POOR DATA QUALITY, INTERPRETATION MAY BE ADVERSELY AFFECTED NORMAL SINUS RHYTHM NORMAL ECG WHEN COMPARED WITH ECG OF 13-APR-2020 02:28, VENT. RATE HAS DECREASED BY 34 BPM Confirmed by VIJAY GOMEZ MD ([id number]) on 04/14/2020 4:25:10 PM Referred By: GABRIELA DIXON Confirmed By:VIJAY GOMEZ MD
--- NOTE | 2020-04-14 16:52 | PN ---
Physical Exam: SUBJECTIVE: Patient seen and examined at bedside this morning. Patient reports improved of generalized pain. Dr. Lopez consulted for pain management. Patient I-stopped. Medications on the chart confirmed and patient reportedly received new prescriptions for her medications, except Dilaudid. As per Dr. Russell, patient's security supervisor, it was not prescribed because patient did not ask for it. Did not attempt to wean patient off. Reportedly patient had tried to discontinue some pain meds in the past, but without success. Patient has had frequent admissions for sickle cell crisis and would be given IV dilaudid. OBJECTIVE: Vital Signs Temperature 98.8 F 04/14/20 13:50 Pulse Rate 56 L 04/14/20 13:50 Respiratory Rate 20 04/14/20 13:50 Blood Pressure 104/58 L 04/14/20 13:50 O2 Sat by Pulse Oximetry (%) 98 04/14/20 13:50 GENERAL: The patient is awake, alert, and fully oriented NECK: full range of motion, supple. LUNGS: Breath sounds equal, clear to auscultation bilaterally HEART: Regular rate and rhythm, S1, S2 ABDOMEN: Soft, nontender, nondistended, normoactive bowel sounds EXTREMITIES: 2+ pulses, warm, well-perfused, no edema. SKIN: Warm, dry, normal turgor Laboratory Results - last 24 hr 04/12/20 04/14/20 04/14/20 23:30 06:55 06:55 WBC 9.4 RBC 2.28 L Hgb 7.6 L Hct 23.1 L MCV 101.2 H MCH 33.5 MCHC 33.1 RDW 17.7 H Plt Count 262 MPV 8.7 Absolute Neuts (auto) 6.0 Neutrophils % 60.2 Neutrophils % (Manual) 63.3 Band Neutrophils % 0.0 Lymphocytes % 29.7 Lymphocytes % (Manual) 33.7 Monocytes % 6.6 Monocytes % (Manual) 2 L Eosinophils % 2.9 Eosinophils % (Manual) 1.0 Basophils % 0.6 Basophils % (Manual) 0.0 Myelocytes % (Man) 0 Promyelocytes % (Man) 0 Blast Cells % (Manual) 0 Nucleated RBC % 3 H Metamyelocytes 0 Hypochromia 0 Platelet Estimate Normal Polychromasia 2+ Poikilocytosis 2+ Anisocytosis 3+ Microcytosis 2+ Macrocytosis 1+ Target Cells 2+ Ovalocytes 1+ Stomatocytes 1+ Sodium 141 Potassium 3.8 Chloride 109 H Carbon Dioxide 23 Anion Gap 9 BUN 8.1 Creatinine 0.8 Est GFR (CKD-EPI)AfAm 107.64 Est GFR (CKD-EPI)NonAf 92.87 Random Glucose 89 Calcium 8.3 L Phosphorus 3.4 Magnesium 2.3 Total Bilirubin 2.0 H AST 58 H ALT 40 Alkaline Phosphatase 178 H Total Protein 7.1 Albumin 3.2 L COVID-19 (DEBORAH) Not detected Active Medications Generic Name Dose Route Start Last Admin Trade Name Freq PRN Reason Stop Dose Admin Cholecalciferol 2,000 unit 04/13/20 10:00 04/14/20 10:12 Vitamin D3 - PO 2,000 unit DAILY LEILA Administration Cyanocobalamin 1,000 mcg 04/13/20 10:00 04/14/20 10:12 Vitamin B12 - PO 1,000 mcg DAILY LEILA Administration Diphenhydramine HCl 25 mg 04/13/20 18:51 04/13/20 21:33 Benadryl Injection - IVPB 25 mg Q6H PRN Administration FOR ITCHING Docusate Sodium 100 mg 04/13/20 10:00 04/14/20 10:12 Colace - PO 100 mg BID LEILA Administration Duloxetine HCl 60 mg 04/13/20 22:00 04/14/20 10:12 Cymbalta - PO 60 mg BID LEILA Administration Folic Acid 1 mg 04/13/20 10:00 04/14/20 10:12 Folic Acid - PO 1 mg DAILY LEILA Administration Fondaparinux 2.5 mg 04/14/20 10:00 04/14/20 10:13 Arixtra (Restricted) - SQ 2.5 mg DAILY LEILA Administration Hydromorphone HCl 1 mg 04/13/20 18:45 04/14/20 10:30 Dilaudid Vial - IVPB 1 mg Q3H PRN Administration PAIN LEVEL 6-10 Lactated Ringer's 1,000 ml in 1,000 mls @ 125 mls/hr 04/13/20 01:30 04/14/20 06:09 Lactated Ringers Solution IV Not Given ASDIR LEILA Pneumococcal 13-Valent Conj Vacc 0.5 ml 04/13/20 17:06 Prevnar 13 Syringe - IM 04/13/20 17:07 .ONCE ONE Prochlorperazine Edisylate 10 mg 04/14/20 14:26 Compazine Injection - IVPB Q4H PRN NAUSEA AND/OR VOMITING Propranolol HCl 10 mg 04/13/20 22:00 04/14/20 10:13 Inderal - PO 10 mg BID LEILA Administration Senna 2 tab 04/13/20 06:57 Senna - PO HS PRN CONSTIPATION ASSESSMENT/PLAN: Patient is a 40 y/o female with a PMH of SCD, fibromyalgia, migraine, colitis, arthritis, failed bone marrow transplantation(2010) presents to the emergency wi th chest pain x 2 days and b/l leg pain x 1day. #Sickle cell crisis -pain control with IV dilaudid and benadryl -will slowly resume home pain meds -IVF -monitor labs -CXR no acute pathology, UA unremarkable -macrocytic anemia, B12/folate elevated, likely in setting of SCD -elevated Tbili, likely in setting of hemolysis -abd US for transaminitis done - revealed dilated CBD as is expected in s/p cholecystectomy -supplemental oxygen to keep sPO2> 90% -Heme-onc (Dr. Nolen) consulted. Recs appreciated -Pain management (Dr. Lopez) consulted. Recs appreciated. #FEN -IV LR @125cc/hr -routine bmp monitoring -Regular diet #Prophylaxis -Fondaparinux 2.5mg sq daily #Disposition -full code -med surg Visit type - Emergency Visit Emergency Visit: Yes ED Registration Date: 04/12/20 Care time: The patient presented to the Emergency Department on the above date and was hospitalized for further evaluation of their emergent condition. - New Patient This patient is new to me today: No - Critical Care Critical Care patient: No ATTENDING PHYSICIAN STATEMENT I saw and evaluated the patient. I reviewed the resident's note and discussed the case with the resident. I agree with the resident's findings and plan as documented. SUBJECTIVE: OBJECTIVE: ASSESSMENT AND PLAN:
[2020-04-14] MEDS ORDERED: ACETAMINOPHEN/CAFFEINE/BUTALBITAL 1 TAB PO PRN ×2 (17:06→17:54)
[2020-04-14] MEDS ORDERED: SUMAtriptan SUCCINATE 50 MG TABLET PO PRN (17:06)
[2020-04-14] MEDS ORDERED: LOPERAMIDE HCL 2 MG CAPSULE PO PRN (17:07)
[2020-04-14] MEDS ORDERED: ONDANSETRON 4 MG/2 ML VIAL IVPUSH PRN (17:45)
--- NOTE | 2020-04-14 19:01 | PN ---
Teaching Attending Note Name of Resident: Erica Gandhi ATTENDING PHYSICIAN STATEMENT I saw and evaluated the patient. I reviewed the resident's note and discussed the case with the resident. I agree with the resident's findings and plan as documented. SUBJECTIVE: Patient seen and examined at bedside, more alert today feeling better, will need pain management evaluation due to high dose of opioids for adequate pain control, then may DC home w/ Heme follow up w/ Dr. Sandoval ([facility]). VSS. OBJECTIVE: GENERAL: Awake, alert, and fully oriented, anxious and in severe painful distress. HEAD: No signs of trauma. EYES: Conjunctiva clear. NECK: Normal range of motion LUNGS: CTAB, no crackles or wheezing HEART: S1 and S2 regular rate and rytm, no murmur, rub or gallop. ABDOMEN: Soft, nontender, no guarding, no rebound. MUSCULOSKELETAL: Normal range of motion, no peripheral edema NEUROLOGICAL: Alert, oriented x 3, normal speech, no visual or hearing impairment PSYCHIATRIC: Appropriate mood and affect. SKIN: Warm, dry, normal turgor, normal capillary refill. Vital Signs - 24 hr 04/13/20 04/13/20 04/14/20 21:00 22:00 02:00 Temperature 98.8 F 98.5 F Pulse Rate 76 63 Respiratory 20 20 20 Rate Blood Pressure 119/69 104/52 L O2 Sat by Pulse 100 100 100 Oximetry (%) 04/14/20 04/14/20 04/14/20 02:43 06:20 09:00 Temperature 99 F Pulse Rate 65 Respiratory 20 20 20 Rate Blood Pressure 100/56 L O2 Sat by Pulse 100 99 99 Oximetry (%) 04/14/20 04/14/20 04/14/20 10:00 13:50 16:59 Temperature 98.8 F 98.8 F 99.0 F Pulse Rate 60 56 L 55 L Respiratory 20 20 20 Rate Blood Pressure 102/60 104/58 L 116/72 O2 Sat by Pulse 99 98 100 Oximetry (%) Laboratory Results - last 24 hr 04/12/20 04/14/20 04/14/20 23:30 06:55 06:55 WBC 9.4 RBC 2.28 L Hgb 7.6 L Hct 23.1 L MCV 101.2 H MCH 33.5 MCHC 33.1 RDW 17.7 H Plt Count 262 MPV 8.7 Absolute Neuts (auto) 6.0 Neutrophils % 60.2 Neutrophils % (Manual) 63.3 Band Neutrophils % 0.0 Lymphocytes % 29.7 Lymphocytes % (Manual) 33.7 Monocytes % 6.6 Monocytes % (Manual) 2 L Eosinophils % 2.9 Eosinophils % (Manual) 1.0 Basophils % 0.6 Basophils % (Manual) 0.0 Myelocytes % (Man) 0 Promyelocytes % (Man) 0 Blast Cells % (Manual) 0 Nucleated RBC % 3 H Metamyelocytes 0 Hypochromia 0 Platelet Estimate Normal Polychromasia 2+ Poikilocytosis 2+ Anisocytosis 3+ Microcytosis 2+ Macrocytosis 1+ Target Cells 2+ Ovalocytes 1+ Stomatocytes 1+ Sodium 141 Potassium 3.8 Chloride 109 H Carbon Dioxide 23 Anion Gap 9 BUN 8.1 Creatinine 0.8 Est GFR (CKD-EPI)AfAm 107.64 Est GFR (CKD-EPI)NonAf 92.87 Random Glucose 89 Calcium 8.3 L Phosphorus 3.4 Magnesium 2.3 Total Bilirubin 2.0 H AST 58 H ALT 40 Alkaline Phosphatase 178 H Total Protein 7.1 Albumin 3.2 L COVID-19 (DEBORAH) Not detected Home Medications Medication Instructions Recorded Butalbital/Aspirin/Caffeine 1 tablet PO Q6H PRN 04/13/20 [[id number] 50-325-40] Cholecalciferol (Vitamin D3) 2,000 unit PO DAILY 04/13/20 [Vitamin D3] Cyanocobalamin (Vitamin B-12) 1,000 mcg PO DAILY 04/13/20 [Vitamin B-12] Diclofenac Sodium 60 mg PO BID 04/13/20 Duloxetine HCl 60 mg PO BID 04/13/20 Fluticasone Prop 0.05% Nasal 1 spray IH TID 04/13/20 [Flonase -] Folic Acid 1 mg PO DAILY 04/13/20 Hydromorphone HCl [Dilaudid] 8 mg PO BID 04/13/20 Ketamine HCl in 0.9 % NaCl 1 spray IH TID PRN 04/13/20 [Ketamine 50 mg/5 ml-0.9% NaCl] Methocarbamol 1,000 mg PO BID 04/13/20 Oxycodone Myristate [Xtampza ER] 36 mg PO Q12H PRN 04/13/20 Pantoprazole Sodium [Protonix] 40 mg PO DAILY 04/13/20 Pregabalin [Lyrica] 200 mg PO TID 04/13/20 Propranolol HCl 10 mg PO DAILY 04/13/20 Sumatriptan Succinate 100 mg PO DAILY PRN 04/13/20 Zolpidem Tartrate [Ambien] 5 mg PO HS PRN 04/13/20 Current Medications Generic Name Dose Route Start Last Admin Trade Name Luci PRN Reason Stop Dose Admin Acetaminophen/Butalbital/Caffeine 1 tablet 04/14/20 17:54 Fioricet - PO Q6H PRN HEADACHE/PAIN Cholecalciferol 2,000 unit 04/13/20 10:00 04/14/20 10:12 Vitamin D3 - PO 2,000 unit DAILY LEILA Administration Cyanocobalamin 1,000 mcg 04/13/20 10:00 04/14/20 10:12 Vitamin B12 - PO 1,000 mcg DAILY LEILA Administration Diphenhydramine HCl 25 mg 04/13/20 18:51 04/13/20 21:33 Benadryl Injection - IVPB 25 mg Q6H PRN Administration FOR ITCHING Docusate Sodium 100 mg 04/13/20 10:00 04/14/20 10:12 Colace - PO 100 mg BID LEILA Administration Duloxetine HCl 60 mg 04/13/20 22:00 04/14/20 10:12 Cymbalta - PO 60 mg BID LEILA Administration Folic Acid 1 mg 04/13/20 10:00 04/14/20 10:12 Folic Acid - PO 1 mg DAILY LEILA Administration Fondaparinux 2.5 mg 04/14/20 10:00 04/14/20 10:13 Arixtra (Restricted) - SQ 2.5 mg DAILY LEILA Administration Hydromorphone HCl 1 mg 04/14/20 17:25 04/14/20 18:14 Dilaudid Vial - IVPB 1 mg Q6H PRN Administration PAIN LEVEL 7 - 10 Lactated Ringer's 1,000 ml in 1,000 mls @ 125 mls/hr 04/13/20 01:30 04/14/20 06:09 Lactated Ringers Solution IV Not Given ASDIR LEILA Loperamide HCl 2 mg 04/14/20 17:07 Imodium - PO Q8H PRN DIARRHEA Ondansetron HCl 4 mg 04/14/20 17:45 04/14/20 18:01 Zofran Injection IVPUSH 4 mg Q6H PRN Administration NAUSEA AND/OR VOMITING Oxycodone HCl 40 mg 04/14/20 22:00 Oxycontin - PO BID LEILA Pneumococcal 13-Valent Conj Vacc 0.5 ml 04/13/20 17:06 Prevnar 13 Syringe - IM 04/13/20 17:07 .ONCE ONE Pregabalin 100 mg 04/14/20 22:00 Lyrica - PO 04/15/20 21:59 BID ELILA Propranolol HCl 10 mg 04/13/20 22:00 04/14/20 10:13 Inderal - PO 10 mg BID LEILA Administration Senna 2 tab 04/13/20 06:57 Senna - PO HS PRN CONSTIPATION Sumatriptan Succinate 100 mg 04/14/20 17:06 Imitrex - PO DAILY PRN MIGRAINE ASSESSMENT AND PLAN: 40 F Sickle cell disease with acute occlusive crisis s/p cholecystectomy HTN depression anxiety Opioid dependence Chronic pain Migraines h/o HIT Plan: Cont. opioids for pain control, needs pain management evaluation Cont. psych meds Supplement bowel regimen Cont. FA/MV/iron Not on hydroxyurea? reason Axitra for DVT ppx
--- NOTE | 2020-04-14 19:34 | PN ---
Teaching Attending Note Name of Resident: Beck Mackay ATTENDING PHYSICIAN STATEMENT I saw and evaluated the patient. I reviewed the resident's note and discussed the case with the resident. I agree with the resident's findings and plan as documented. 40 yo F with hgb SS disease, admitted with typical, uncomplicated VOC. Pt also with h/o migraines, fibromyalgia, Marrero's palsy, C.Diff, and possible DVT. Pain in lower back, and legs. Fevers, cough, CP, or sob. Tolerating PO. Feels some GI symptoms of withdrawal. Currently on dilaudid iv prn. At home takes xtampza 36mg(equivalent to oxycontin 40mg) x 3 q12 po standing and dilaudid po prn. Also c/o CINTRON's. On exam, non-icteric sclera, chest clear. Stable hgb. Would add oxycontin 40mg po q12, and titrate up to 80mg q12 on 04/15 if symptoms do not improve. C/w dilaudid iv prn, titrate as needed. c/w Incentive Spirometer c/w other meds. follow retic and LDH. encourage po fluids. d/w House Staff.
[2020-04-14] MEDS: PREGABALIN 100 MG CAPSULE PO SCH (21:46)
[2020-04-14] MEDS: oxyCODONE HCL 40 MG SUSTAINED ACTING TABLET PO SCH (21:46)
[2020-04-15] MEDS: HYDROmorphone HCl 2 MG/ML VIAL IVPB PRN ×4 (00:42→20:08)
[2020-04-15] MEDS ORDERED: HYDROmorphone HCl 2 MG/ML VIAL IVPB ONE (03:08)
[2020-04-15] MEDS: LACTATED RINGERS SOLUTION 1,000 ML/1,000 ML INFUS.BAG IV SCH (04:19)
[2020-04-15 08:46] LABS: BASO % 1.4 % (0-2.0); EOS % 4.1 % (0-4.5); HEMATOCRIT 21.8 % (32.4-45.2); HEMOGLOBIN 7.3 GM/dL (10.7-15.3); LYMPH % 18.2 % (8-40); MCH 33.3 pg (25.7-33.7); MCHC 33.5 g/dl (32.0-36.0); MEAN CELL VOLUME 99.4 fl (80-96); MEAN PLT VOLUME 8.6 fl (7.5-11.1); MONO % 10.6 % (3.8-10.2); NEUT % 65.7 % (42.8-82.8); PLATELET COUNT 236 K/MM3 (134-434); RBC 2.19 M/mm3 (3.60-5.2); RDW 16.8 % (11.6-15.6); WHITE BLOOD COUNT 9.7 K/mm3 (4.0-10.0)
[2020-04-15] MEDS ORDERED: PT OWN MED DRAWER 7, Y5N ONE ×2 (08:56→21:04)
[2020-04-15] MEDS: FOLIC ACID 1 MG TABLET (FP) PO SCH (09:07)
[2020-04-15] MEDS: PREGABALIN 100 MG CAPSULE PO SCH (09:07)
[2020-04-15] MEDS: CYANOCOBALAMIN 1,000 MCG TABLET (FP) PO SCH (09:07)
[2020-04-15] MEDS: DOCUSATE SODIUM 100 MG CAPSULE (FP) PO SCH ×2 (09:07→09:15)
[2020-04-15] MEDS: DULoxetine HCL 30 MG CAPSULE.DR PO SCH ×2 (09:07→21:12)
[2020-04-15] MEDS: CHOLECALCIFEROL (VIT D3) 1,000 UNIT (25 MCG) TABLET PO SCH (09:07)
[2020-04-15] MEDS: oxyCODONE HCL 40 MG SUSTAINED ACTING TABLET PO SCH ×2 (09:07→21:12)
[2020-04-15] MEDS: FONDAPARINUX SODIUM 2.5 MG/0.5 ML DISP.SYRIN SQ SCH (09:08)
[2020-04-15 09:12] LABS: ALBUMIN 3.2 g/dl (3.4-5.0); BILIRUBIN,TOTAL 1.8 mg/dL (0.2-1); BLOOD UREA NITROGEN 7.3 mg/dL (7-18); CALCIUM 8.6 mg/dL (8.5-10.1); CREATININE 0.8 mg/dL (0.55-1.3); POTASSIUM 3.7 mmol/L (3.5-5.1); TOT PROT 6.7 g/dl (6.4-8.2)
[2020-04-15] MEDS ORDERED: DOCUSATE SODIUM 100 MG CAPSULE (FP) PO PRN (09:22)
[2020-04-15] MEDS ORDERED: PNEUMOC 13-VAL CONJ-DIP CRM/PF 0.5 ML DISP.SYRIN IM ONE (12:00)
--- NOTE | 2020-04-15 12:50 | PN ---
Physical Exam: SUBJECTIVE: Patient seen and examined OBJECTIVE: Vital Signs Temperature 99.3 F 04/15/20 09:00 Pulse Rate 63 04/15/20 09:00 Respiratory Rate 20 04/15/20 10:29 Blood Pressure 123/78 04/15/20 09:00 O2 Sat by Pulse Oximetry (%) 100 04/15/20 10:29 GENERAL: The patient is awake, alert, and fully oriented NECK: full range of motion, supple. LUNGS: Breath sounds equal, clear to auscultation bilaterally HEART: Regular rate and rhythm, S1, S2 ABDOMEN: Soft, nontender, nondistended, normoactive bowel sounds EXTREMITIES: 2+ pulses, warm, well-perfused, no edema. SKIN: Warm, dry, normal turgor Laboratory Results - last 24 hr 04/15/20 04/15/20 07:30 07:30 WBC 9.7 RBC 2.19 L Hgb 7.3 L Hct 21.8 L MCV 99.4 H MCH 33.3 MCHC 33.5 RDW 16.8 H Plt Count 236 MPV 8.6 Absolute Neuts (auto) 6.4 Neutrophils % 65.7 Lymphocytes % 18.2 D Monocytes % 10.6 H Eosinophils % 4.1 Basophils % 1.4 Nucleated RBC % 2 H Sodium 142 Potassium 3.7 Chloride 109 H Carbon Dioxide 24 Anion Gap 9 BUN 7.3 Creatinine 0.8 Est GFR (CKD-EPI)AfAm 107.64 Est GFR (CKD-EPI)NonAf 92.87 Random Glucose 89 Calcium 8.6 Total Bilirubin 1.8 H AST 41 H ALT 36 Alkaline Phosphatase 162 H Total Protein 6.7 Albumin 3.2 L Active Medications Generic Name Dose Route Start Last Admin Trade Name Freq PRN Reason Stop Dose Admin Cholecalciferol 2,000 unit 04/13/20 10:00 04/15/20 09:07 Vitamin D3 - PO 2,000 unit DAILY LEILA Administration Cyanocobalamin 1,000 mcg 04/13/20 10:00 04/15/20 09:07 Vitamin B12 - PO 1,000 mcg DAILY LEILA Administration Diphenhydramine HCl 25 mg 04/13/20 18:51 04/15/20 06:47 Benadryl Injection - IVPB 25 mg Q6H PRN Administration FOR ITCHING Docusate Sodium 100 mg 04/15/20 09:22 Colace - PO BID PRN CONSTIPATION Duloxetine HCl 60 mg 04/13/20 22:00 04/15/20 09:07 Cymbalta - PO 60 mg BID LEILA Administration Folic Acid 1 mg 04/13/20 10:00 04/15/20 09:07 Folic Acid - PO 1 mg DAILY LEILA Administration Fondaparinux 2.5 mg 04/14/20 10:00 04/15/20 09:08 Arixtra (Restricted) - SQ 2.5 mg DAILY LEILA Administration Hydromorphone HCl 1 mg 04/15/20 11:43 Dilaudid Vial - IVPB Q4H PRN PAIN LEVEL 7 - 10 Lactated Ringer's 1,000 ml in 1,000 mls @ 125 mls/hr 04/13/20 01:30 04/15/20 04:19 Lactated Ringers Solution IV Not Given ASDIR LEILA Loperamide HCl 2 mg 04/14/20 17:07 Imodium - PO Q8H PRN DIARRHEA Ondansetron HCl 4 mg 04/14/20 17:45 04/14/20 18:01 Zofran Injection IVPUSH 4 mg Q6H PRN Administration NAUSEA AND/OR VOMITING Oxycodone HCl 40 mg 04/14/20 22:00 04/15/20 09:07 Oxycontin - PO 40 mg BID LEILA Administration Pregabalin 100 mg 04/14/20 22:00 04/15/20 09:07 Lyrica - PO 04/15/20 21:59 100 mg BID LEILA Administration Propranolol HCl 10 mg 04/13/20 22:00 04/15/20 09:08 Inderal - PO 10 mg BID LEILA Administration Senna 2 tab 04/13/20 06:57 Senna - PO HS PRN CONSTIPATION Sumatriptan Succinate 100 mg 04/14/20 17:06 Imitrex - PO DAILY PRN MIGRAINE ASSESSMENT/PLAN: Patient is a 40 y/o female with a PMH of SCD, fibromyalgia, migraine, colitis, arthritis, failed bone marrow transplantation(2010) presents to the emergency with chest pain x 2 days and b/l leg pain x 1day. #Sickle cell crisis -pain control with IV dilaudid and benadryl -will slowly resume home pain meds -IVF -monitor labs -CXR no acute pathology, UA unremarkable -macrocytic anemia, B12/folate elevated, likely in setting of SCD -elevated Tbili, likely in setting of hemolysis -abd US for transaminitis done - revealed dilated CBD as is expected in s/p cholecystectomy -supplemental oxygen to keep sPO2> 90% -Heme-onc (Dr. Nolen) consulted. Recs appreciated -Pain management (Dr. Lopez) consulted. Recs appreciated. #FEN -IV LR @125cc/hr -routine bmp monitoring -Regular diet #Prophylaxis -Fondaparinux 2.5mg sq daily #Disposition -full code -med surg Visit type - Emergency Visit Emergency Visit: Yes ED Registration Date: 04/12/20 Care time: The patient presented to the Emergency Department on the above date and was hospitalized for further evaluation of their emergent condition. - New Patient This patient is new to me today: No - Critical Care Critical Care patient: No ATTENDING PHYSICIAN STATEMENT I saw and evaluated the patient. I reviewed the resident's note and discussed the case with the resident. I agree with the resident's findings and plan as documented. SUBJECTIVE: OBJECTIVE: ASSESSMENT AND PLAN:
--- NOTE | 2020-04-15 22:22 | PN.HO ---
Progress Note (short form) - Note Progress Note: PAtient seen and examined Still reports left leg pain AFVSS Cor: RSR, No murmurs, No gallops Lungs: Clear to P&A Abd: Soft, Normal bowel sounds, No organomegaly Ext:No significant edema LAbs/Meds reviewed A/P 40 y.o. F w/ PMHx. of Sickle Cell(s/p failed BMT in 2010), Fibromyalgia, Marrero's Palsy, Hx. of C.Diff, and Hx. of DVT?, h/o HIT presents with chest pain and b/l leg pain over the last 2 days. Reports Lt. leg pain #Sickle Cell Crisis On IV fluids pain control --dilaudid Q 4hrs. oxycodone 40mg bid. Titrate folic acid incentive spirometer h/o HIT --- use fondaparinux as DVT prophylaxis f/u Dr. Russell, primary hospice art therapist in [place] on d/c
[2020-04-16] MEDS: HYDROmorphone HCl 2 MG/ML VIAL IVPB PRN ×2 (03:18→08:00)
[2020-04-16] MEDS: LACTATED RINGERS SOLUTION 1,000 ML/1,000 ML INFUS.BAG IV SCH (03:19)
[2020-04-16] MEDS ORDERED: PT OWN MED DRAWER 7, Y5N ONE ×2 (07:55→09:55)
[2020-04-16] MEDS ORDERED: HYDROmorphone HCl 2 MG/ML VIAL IVPB PRN (08:59)
[2020-04-16] MEDS: oxyCODONE HCL 40 MG SUSTAINED ACTING TABLET PO SCH (09:59)
[2020-04-16] MEDS: CYANOCOBALAMIN 1,000 MCG TABLET (FP) PO SCH (09:59)
[2020-04-16] MEDS: DULoxetine HCL 30 MG CAPSULE.DR PO SCH (09:59)
[2020-04-16] MEDS: FONDAPARINUX SODIUM 2.5 MG/0.5 ML DISP.SYRIN SQ SCH (09:59)
[2020-04-16] MEDS: FOLIC ACID 1 MG TABLET (FP) PO SCH (09:59)
[2020-04-16] MEDS: CHOLECALCIFEROL (VIT D3) 1,000 UNIT (25 MCG) TABLET PO SCH (12:18)
[2020-04-16 14:02] VITALS: BP 130/63; PULSE 64; TEMP 99.2
--- NOTE | 2020-04-16 15:29 | DS ---
Physical Exam: SUBJECTIVE: Patient seen and examined at bedside, feeling better today and at baseline, stable for DC home and follow up w/ Heme Onc at [facility] Dr. Russell. VSS. OBJECTIVE: GENERAL: Awake, alert, and fully oriented, NAD, calm EYES: Conjunctiva clear. NECK: Normal range of motion LUNGS: CTAB, no crackles or wheezing HEART: S1 and S2 regular rate and rytm, no murmur, rub or gallop. ABDOMEN: Soft, nontender, no guarding, no rebound. MUSCULOSKELETAL: Normal range of motion, no peripheral edema NEUROLOGICAL: Alert, oriented x 3, normal speech, no visual or hearing impairment PSYCHIATRIC: Appropriate mood and affect. SKIN: Warm, dry, normal turgor, normal capillary refill. Vital Signs Period Temp Pulse Resp BP Sys/Montez Pulse Ox Last 24 Hr 97.3 F-99.4 F 64-84 20-20 102-130/54-73 92-100 Vital Signs - 24 hr 04/15/20 04/15/20 04/15/20 16:59 18:00 19:32 Temperature 97.3 F L 99.4 F Pulse Rate 82 84 Respiratory 20 20 20 Rate Blood Pressure 102/54 L 107/61 O2 Sat by Pulse 100 100 96 Oximetry (%) 04/15/20 04/16/20 04/16/20 20:25 02:00 06:31 Temperature 99.1 F Pulse Rate 68 Respiratory 20 Rate Blood Pressure 129/73 O2 Sat by Pulse 96 100 96 Oximetry (%) 04/16/20 04/16/20 09:00 10:00 Temperature 99.2 F Pulse Rate 64 Respiratory 20 20 Rate Blood Pressure 130/63 O2 Sat by Pulse 96 94 L Oximetry (%) Laboratory Tests 04/12/20 04/12/20 04/12/20 16:32 16:32 16:33 WBC 15.3 H RBC 2.13 L Hgb 7.2 L Hct 21.4 L MCV 100.8 H MCH 33.9 H MCHC 33.6 RDW 18.1 H Plt Count 290 MPV 8.6 Absolute Neuts (auto) 8.5 H Neutrophils % 55.8 Neutrophils % (Manual) Band Neutrophils % Lymphocytes % 31.6 Lymphocytes % (Manual) Monocytes % 8.3 Monocytes % (Manual) Eosinophils % 3.5 Eosinophils % (Manual) Basophils % 0.8 Basophils % (Manual) Myelocytes % (Man) Promyelocytes % (Man) Blast Cells % (Manual) Nucleated RBC % 4 H Metamyelocytes Hypochromia Platelet Estimate Polychromasia Poikilocytosis Anisocytosis Microcytosis Macrocytosis Target Cells Ovalocytes Stomatocytes Retic Count 10.91 H* Sodium 143 Potassium 3.9 Chloride 109 H Carbon Dioxide 26 Anion Gap 8 BUN 13.6 Creatinine 1.2 Est GFR (CKD-EPI)AfAm 65.93 Est GFR (CKD-EPI)NonAf 56.88 Random Glucose 77 Calcium 8.2 L Phosphorus Magnesium 2.6 H Total Bilirubin 1.9 H Direct Bilirubin AST 75 H ALT 49 Alkaline Phosphatase 186 H LD Total Total Protein 7.1 Albumin 3.3 L Vitamin B12 Serum Folate Urine Color Yellow Urine Appearance Clear Urine pH 6.5 Ur Specific Archie 1.011 Urine Protein Negative Urine Glucose (UA) Negative Urine Ketones Negative Urine Blood Negative Urine Nitrite Negative Urine Bilirubin Negative Urine Urobilinogen 1.0 Ur Leukocyte Esterase Negative Urine HCG, Qual Negative COVID-19 (DEBORAH) 04/12/20 04/13/20 04/13/20 23:30 12:35 12:35 WBC 10.6 H RBC 2.32 L Hgb 7.9 L Hct 23.6 L MCV 101.9 H MCH 34.2 H MCHC 33.6 RDW 18.6 H Plt Count 279 MPV 8.9 Absolute Neuts (auto) 6.1 Neutrophils % 57.0 Neutrophils % (Manual) Band Neutrophils % Lymphocytes % 29.2 Lymphocytes % (Manual) Monocytes % 8.9 Monocytes % (Manual) Eosinophils % 4.2 Eosinophils % (Manual) Basophils % 0.7 Basophils % (Manual) Myelocytes % (Man) Promyelocytes % (Man) Blast Cells % (Manual) Nucleated RBC % 3 H Metamyelocytes Hypochromia Platelet Estimate Polychromasia Poikilocytosis Anisocytosis Microcytosis Macrocytosis Target Cells Ovalocytes Stomatocytes Retic Count Sodium Cancelled Potassium Cancelled Chloride Cancelled Carbon Dioxide Cancelled Anion Gap Cancelled BUN Cancelled Creatinine Cancelled Est GFR (CKD-EPI)AfAm Cancelled Est GFR (CKD-EPI)NonAf Cancelled Random Glucose Cancelled Calcium Cancelled Phosphorus Cancelled Magnesium Cancelled Total Bilirubin Cancelled Direct Bilirubin Cancelled AST Cancelled ALT Cancelled Alkaline Phosphatase Cancelled LD Total Total Protein Cancelled Albumin Cancelled Vitamin B12 Cancelled Serum Folate Cancelled Urine Color Urine Appearance Urine pH Ur Specific Archie Urine Protein Urine Glucose (UA) Urine Ketones Urine Blood Urine Nitrite Urine Bilirubin Urine Urobilinogen Ur Leukocyte Esterase Urine HCG, Qual COVID-19 (DEBORAH) Not detected 04/13/20 04/14/20 04/14/20 12:35 06:55 06:55 WBC 9.4 RBC 2.28 L Hgb 7.6 L Hct 23.1 L MCV 101.2 H MCH 33.5 MCHC 33.1 RDW 17.7 H Plt Count 262 MPV 8.7 Absolute Neuts (auto) 6.0 Neutrophils % 60.2 Neutrophils % (Manual) 63.3 Band Neutrophils % 0.0 Lymphocytes % 29.7 Lymphocytes % (Manual) 33.7 Monocytes % 6.6 Monocytes % (Manual) 2 L Eosinophils % 2.9 Eosinophils % (Manual) 1.0 Basophils % 0.6 Basophils % (Manual) 0.0 Myelocytes % (Man) 0 Promyelocytes % (Man) 0 Blast Cells % (Manual) 0 Nucleated RBC % 3 H Metamyelocytes 0 Hypochromia 0 Platelet Estimate Normal Polychromasia 2+ Poikilocytosis 2+ Anisocytosis 3+ Microcytosis 2+ Macrocytosis 1+ Target Cells 2+ Ovalocytes 1+ Stomatocytes 1+ Retic Count Sodium 143 141 Potassium 3.7 3.8 Chloride 111 H 109 H Carbon Dioxide 23 23 Anion Gap 9 9 BUN 11.1 8.1 Creatinine 0.9 0.8 Est GFR (CKD-EPI)AfAm 93.35 107.64 Est GFR (CKD-EPI)NonAf 80.54 92.87 Random Glucose 79 89 Calcium 8.2 L 8.3 L Phosphorus 3.3 3.4 Magnesium 2.5 H 2.3 Total Bilirubin 1.8 H 2.0 H Direct Bilirubin 0.6 H AST 58 H 58 H ALT 43 40 Alkaline Phosphatase 178 H 178 H LD Total 440 H Total Protein 7.2 7.1 Albumin 3.3 L 3.2 L Vitamin B12 2563 H Serum Folate 42 H Urine Color Urine Appearance Urine pH Ur Specific Archie Urine Protein Urine Glucose (UA) Urine Ketones Urine Blood Urine Nitrite Urine Bilirubin Urine Urobilinogen Ur Leukocyte Esterase Urine HCG, Qual COVID-19 (DEBORAH) 04/15/20 04/15/20 07:30 07:30 WBC 9.7 RBC 2.19 L Hgb 7.3 L Hct 21.8 L MCV 99.4 H MCH 33.3 MCHC 33.5 RDW 16.8 H Plt Count 236 MPV 8.6 Absolute Neuts (auto) 6.4 Neutrophils % 65.7 Neutrophils % (Manual) Band Neutrophils % Lymphocytes % 18.2 D Lymphocytes % (Manual) Monocytes % 10.6 H Monocytes % (Manual) Eosinophils % 4.1 Eosinophils % (Manual) Basophils % 1.4 Basophils % (Manual) Myelocytes % (Man) Promyelocytes % (Man) Blast Cells % (Manual) Nucleated RBC % 2 H Metamyelocytes Hypochromia Platelet Estimate Polychromasia Poikilocytosis Anisocytosis Microcytosis Macrocytosis Target Cells Ovalocytes Stomatocytes Retic Count Sodium 142 Potassium 3.7 Chloride 109 H Carbon Dioxide 24 Anion Gap 9 BUN 7.3 Creatinine 0.8 Est GFR (CKD-EPI)AfAm 107.64 Est GFR (CKD-EPI)NonAf 92.87 Random Glucose 89 Calcium 8.6 Phosphorus Magnesium Total Bilirubin 1.8 H Direct Bilirubin AST 41 H ALT 36 Alkaline Phosphatase 162 H LD Total Total Protein 6.7 Albumin 3.2 L Vitamin B12 Serum Folate Urine Color Urine Appearance Urine pH Ur Specific Archie Urine Protein Urine Glucose (UA) Urine Ketones Urine Blood Urine Nitrite Urine Bilirubin Urine Urobilinogen Ur Leukocyte Esterase Urine HCG, Qual COVID-19 (DEBORAH) Home Medications Medication Instructions Recorded Butalbital/Aspirin/Caffeine 1 tablet PO Q6H PRN 04/13/20 [Stgpiw-Imdwsov-Fdyul 50-325-40] Cholecalciferol (Vitamin D3) 2,000 unit PO DAILY 04/13/20 [Vitamin D3] Cyanocobalamin (Vitamin B-12) 1,000 mcg PO DAILY 04/13/20 [Vitamin B-12] Diclofenac Sodium 60 mg PO BID 04/13/20 Duloxetine HCl 60 mg PO BID 04/13/20 Fluticasone Prop 0.05% Nasal 1 spray IH TID 04/13/20 [Flonase -] Folic Acid 1 mg PO DAILY 04/13/20 Hydromorphone HCl [Dilaudid] 8 mg PO BID 04/13/20 Ketamine HCl in 0.9 % NaCl 1 spray IH TID PRN 04/13/20 [Ketamine 50 mg/5 ml-0.9% NaCl] Methocarbamol 1,000 mg PO BID 04/13/20 Oxycodone Myristate [Xtampza ER] 36 mg PO Q12H PRN 04/13/20 Pantoprazole Sodium [Protonix] 40 mg PO DAILY 04/13/20 Pregabalin [Lyrica] 200 mg PO TID 04/13/20 Propranolol HCl 10 mg PO DAILY 04/13/20 Sumatriptan Succinate 100 mg PO DAILY PRN 04/13/20 Zolpidem Tartrate [Ambien] 5 mg PO HS PRN 04/13/20 HOSPITAL COURSE: 40 F h/o SCD, fibromyalgia, migraine,colitis, arthritis, depression, opioid dependence, failed bone marrow transplantation(2010) presents to the emergency with chest pain x 2 days and b/l leg pain x 1day. Admitted for sickle cell crisis, received several days of aggressive hydration and pain medications. Patient not found to have acute chest syndrome. No focal areas of infection. Pt. follows w/ Heme Onc in [place] Dr. Russell. Pain much improved stable for DC to follow up w/ primary tear down worker. Date of Admission:04/12/20 Date of Discharge: 04/16/20 Minutes to complete discharge: 40 Discharge Summary Problems reviewed: Yes Reason For Visit: HB-SS DISEASE WITH CRISIS Condition: Improved - Instructions Diet, Activity, Other Instructions: Your visit You were admitted to the hospital because you had severe pain. This was likely because of your sickle cell disease. You were evaluated by the tear down worker and pain specialist. Medications Please continue your home medications. Follow up Please follow up with your primary care doctor in 1 week. Please follow up with your tear down worker (Dr. Russell) in 1 week. Additional info Please call 911 or go to the ED if with any worsening fevers, chills, headache, dizziness, chest pain, shortness of breath, belly pain, or any new concerns noted. Referrals: Bhupinder Carlson MD [Staff Physician] - Disposition: HOME - Home Medications Comprehensive Discharge Medication List: Ambulatory Orders Butalbital/Aspirin/Caffeine [Qojayr-Uzmqkes-Kruei 50-325-40] 1 tablet PO Q6H PRN 04/13/20 Cholecalciferol (Vitamin D3) [Vitamin D3] 2,000 unit PO DAILY 04/13/20 Cyanocobalamin (Vitamin B-12) [Vitamin B-12] 1,000 mcg PO DAILY 04/13/20 Diclofenac Sodium 60 mg PO BID 04/13/20 Duloxetine HCl 60 mg PO BID 04/13/20 Fluticasone Prop 0.05% Nasal [Flonase -] 1 spray IH TID 04/13/20 Folic Acid 1 mg PO DAILY 04/13/20 Hydromorphone HCl [Dilaudid] 8 mg PO BID 04/13/20 Ketamine HCl in 0.9 % NaCl [Ketamine 50 mg/5 ml-0.9% NaCl] 1 spray IH TID PRN 04/13/20 Methocarbamol 1,000 mg PO BID 04/13/20 Oxycodone Myristate [Xtampza ER] 36 mg PO Q12H PRN 04/13/20 Pantoprazole Sodium [Protonix] 40 mg PO DAILY 04/13/20 Pregabalin [Lyrica] 200 mg PO TID 04/13/20 Propranolol HCl 10 mg PO DAILY 04/13/20 Sumatriptan Succinate 100 mg PO DAILY PRN 04/13/20 Zolpidem Tartrate [Ambien] 5 mg PO HS PRN 04/13/20 This patient is new to me today: No Emergency Visit: Yes ED Registration Date: 04/12/20 Care time: The patient presented to the Emergency Department on the above date and was hospitalized for further evaluation of their emergent condition. Critical Care patient: No - Discharge Referral Referred to [facility] Med P.[facility] No
== END 2020-04-16 14:03 | disposition home or self-care (01) | DRG 812 ==
LOC: SUPCPDRO 15:37 → JER 15:37 → JERBED 20:26 → J8W 04-13 05:07
PROVIDERS: ADMIT Internal Medicine
DX: D57.00 Hb-SS disease with crisis, unspecified (principal); F11.20 Opioid dependence, uncomplicated; M79.7 Fibromyalgia; G43.909 Migraine, unspecified, not intractable, without status migrainosus; G51.0 Bell's palsy; F32.9 Major depressive disorder, single episode, unspecified; F41.9 Anxiety disorder, unspecified; D64.9 Anemia, unspecified
CPT/HCPCS: 36415; 71045-TC-FY; 76705-TC; 80053; 80076; 81003; 82607; 82746; 83615; 83735; 84100; 84703; 85025; 85044; 90670; 93005; 93010; 99285-25; J7030; U0003

== ENCOUNTER 2020-11-11 17:12 | Inpatient (IN) | payer OTHER ==
[2020-11-11] MEDS ORDERED: HYDROmorphone HCL CARPU-JECT 2 MG/1 ML DISP.SYRIN IVPUSH ONE (22:15)
[2020-11-11] MEDS ORDERED: SODIUM CHLORIDE 0.9% 500 ML INFUS.BAG IV ONE (22:15)
[2020-11-11] MEDS ORDERED: HYDROmorphone HCl 2 MG/ML VIAL ONE (23:12)
[2020-11-11 23:21] LABS: BASO % 1.1 % (0-2.0); EOS % 1.4 % (0-4.5); HEMATOCRIT 24.3 % (32.4-45.2); HEMOGLOBIN 8.2 GM/dL (10.7-15.3); LYMPH % 23.7 % (8-40); MCH 33.2 pg (25.7-33.7); MCHC 33.9 g/dl (32.0-36.0); MEAN CELL VOLUME 97.7 fl (80-96); MONO % 8.4 % (3.8-10.2); NEUT % 65.4 % (42.8-82.8); PLATELET COUNT 230 K/MM3 (134-434); RBC 2.48 M/mm3 (3.60-5.2); RDW 16.5 % (11.6-15.6); RETICULOCYTES 5.68 % (0.5-1.5)
[2020-11-11 23:45] LABS: POTASSIUM 4.2 mmol/L (3.5-5.1)
[2020-11-11 23:50] LABS: ALBUMIN 4.2 g/dl (3.4-5.0); BLOOD UREA NITROGEN 20.4 mg/dL (7-18); CALCIUM 8.7 mg/dL (8.5-10.1)
[2020-11-11 23:54] LABS: CREATININE 1.5 mg/dL (0.55-1.3)
[2020-11-11 23:55] LABS: BILIRUBIN,TOTAL 2.6 mg/dL (0.2-1); TOT PROT 8.4 g/dl (6.4-8.2)
[2020-11-12] MEDS ORDERED: HYDROmorphone HCL CARPU-JECT 2 MG/1 ML DISP.SYRIN IVPUSH ONE (02:14)
[2020-11-12] MEDS ORDERED: HYDROmorphone HCl 2 MG/ML VIAL ONE ×2 (02:23→13:52)
[2020-11-12] MEDS ORDERED: SODIUM CHLORIDE 0.9% 500 ML INFUS.BAG IV ONE (05:54)
[2020-11-12] MEDS ORDERED: KETOROLAC TROMETHAMINE 30 MG/1 ML VIAL ONE (05:54)
[2020-11-12] MEDS ORDERED: KETOROLAC TROMETHAMINE 30 MG/1 ML VIAL IVPUSH ONE (05:54)
[2020-11-12] MEDS ORDERED: OXYCODONE MYRISTATE 36 MG PO PRN (09:29)
[2020-11-12] MEDS ORDERED: [UNRECOGNIZED DRUG - OTHER] IH PRN (09:29)
[2020-11-12] MEDS ORDERED: SUMAtriptan SUCCINATE 50 MG TABLET PO PRN (09:29)
[2020-11-12] MEDS ORDERED: KETAMINE HCL IH PRN (09:29)
[2020-11-12] MEDS ORDERED: ZOLPIDEM TARTRATE 5 MG TABLET PO PRN (09:29)
[2020-11-12] MEDS ORDERED: ACETAMINOPHEN/CAFFEINE/BUTALBITAL 1 TAB PO PRN (09:29)
[2020-11-12] MEDS ORDERED: NACL 0.9% IH PRN (09:29)
[2020-11-12 09:49] LABS: MAGNESIUM 2.4 mg/dL (1.8-2.4)
[2020-11-12 09:53] LABS: PHOSPHOROUS 5.5 mg/dL (2.5-4.9)
[2020-11-12] MEDS ORDERED: SODIUM CHLORIDE 1,000 ML IV SCH ×2 (10:00→17:06)
[2020-11-12] MEDS ORDERED: CHOLECALCIFEROL (VIT D3) 1,000 UNIT (25 MCG) TABLET ONE (11:06)
[2020-11-12] MEDS ORDERED: PANTOPRAZOLE 40 MG TABLET ONE (11:06)
[2020-11-12] MEDS ORDERED: METHOCARBAMOL 500 MG TABLET ONE (11:06)
[2020-11-12] MEDS ORDERED: DULoxetine HCL 30 MG CAPSULE.DR PO ONE (11:07)
[2020-11-12] MEDS ORDERED: FOLIC ACID 1 MG TABLET (FP) ONE (11:07)
[2020-11-12] MEDS: CHOLECALCIFEROL (VIT D3) 1,000 UNIT (25 MCG) TABLET PO SCH (12:00)
[2020-11-12] MEDS: FONDAPARINUX 10 MG/0.8 ML SQ SCH (12:00)
[2020-11-12] MEDS: METHOCARBAMOL 500 MG TABLET PO SCH ×2 (12:00→21:53)
[2020-11-12] MEDS: FOLIC ACID 1 MG TABLET (FP) PO SCH (12:00)
[2020-11-12] MEDS: DULoxetine HCL 30 MG CAPSULE.DR PO SCH ×2 (12:00→21:49)
[2020-11-12] MEDS: PANTOPRAZOLE 40 MG TABLET PO SCH (12:00)
[2020-11-12] MEDS: CYANOCOBALAMIN 1,000 MCG TABLET (FP) PO SCH (13:46)
[2020-11-12] MEDS ORDERED: PREGABALIN 100 MG CAPSULE ONE (13:52)
[2020-11-12] MEDS ORDERED: DEFERASIROX 180 MG PO SCH (14:00)
[2020-11-12] MEDS ORDERED: DICLOFENAC SODIUM 75 MG TABLET.DR PO SCH (14:00)
[2020-11-12] MEDS: PREGABALIN 100 MG CAPSULE PO SCH ×2 (14:11→21:49)
[2020-11-12] MEDS: HYDROmorphone HCl 2 MG/ML VIAL IVPUSH PRN ×2 (14:12→18:14)
[2020-11-12 14:48] LABS: EPI CELLS 21 /uL (0-25.1); HYALINE CASTS 5 /uL (0-3.1); METHADONE, UR NEGATIVE ng/ml (CUTOFF=300); PH,URINE 5.5 (5.0-8.0); PHENCYCLIDINE,URINE NEGATIVE ng/ml (CUTOFF=25); URINE APPEARANCE TURBID; URINE BACTERIA >9,000 /uL (0-1359); URINE BENZODIAZEPINES NEGATIVE ng/ml (CUTOFF=200); URINE BILIRUBIN NEGATIVE (NEGATIVE); URINE COLOR YELLOW; URINE GLUCOSE (UA) NEGATIVE (NEGATIVE); URINE KETONE NEGATIVE (NEGATIVE); URINE LEUK ESTERASE 3+ (NEGATIVE); URINE NITRITE NEGATIVE (NEGATIVE); URINE PROTEIN NEGATIVE (NEGATIVE); URINE WBC 923 /uL (0-25.8)
[2020-11-12 15:06] LABS: COCAINE, UR NEGATIVE ng/ml (CUTOFF=300); URINE AMPHETAMINES NEGATIVE ng/ml (CUTOFF=500)
[2020-11-12 15:12] VITALS: BMI 24.3
[2020-11-12] MEDS ORDERED: CEFTRIAXONE 1 GM in DEXTROSE 5%-WATER - 50 ML IVPB SCH (15:15)
[2020-11-12 15:16] LABS: URINE BARBITURATES POSITIVE ng/ml (CUTOFF=200)
[2020-11-12 15:17] LABS: OPIATES, URI POSITIVE ng/ml (CUTOFF=300)
[2020-11-12 15:18] LABS: URINE RBC 23.7 /uL (0-23.9)
[2020-11-12] MEDS ORDERED: DEXTROSE 5%-WATER - 50 ML IVPB ONE (15:34)
[2020-11-12] MEDS ORDERED: cefTRIAXone SODIUM 1 GM VIAL ONE (15:34)
[2020-11-12 18:04] LABS: EPI CELLS 8 /uL (0-25.1); HYALINE CASTS 1 /uL (0-3.1); PH,URINE 5.5 (5.0-8.0); URINE APPEARANCE CLOUDY; URINE BACTERIA 2911 /uL (0-1359); URINE BILIRUBIN NEGATIVE (NEGATIVE); URINE COLOR YELLOW; URINE GLUCOSE (UA) NEGATIVE (NEGATIVE); URINE KETONE NEGATIVE (NEGATIVE); URINE LEUK ESTERASE 2+ (NEGATIVE); URINE NITRITE POSITIVE (NEGATIVE); URINE PROTEIN NEGATIVE (NEGATIVE); URINE RBC 9 /uL (0-23.9); URINE WBC 459 /uL (0-25.8)
[2020-11-12] MEDS ORDERED: diphenhydrAMINE HCL 25 MG CAPSULE (FP) PO PRN (19:10)
[2020-11-12] MEDS ORDERED: diphenhydrAMINE HCL 25 MG CAPSULE (FP) PO ONE (19:18)
[2020-11-12 19:46] LABS: BASO % 0.4 % (0-2.0); EOS % 2.1 % (0-4.5); HEMATOCRIT 21.5 % (32.4-45.2); HEMOGLOBIN 7.3 GM/dL (10.7-15.3); LYMPH % 14.3 % (8-40); MCH 33.3 pg (25.7-33.7); MCHC 33.9 g/dl (32.0-36.0); MEAN CELL VOLUME 98.2 fl (80-96); MEAN PLT VOLUME 8.6 fl (7.5-11.1); MONO % 9.6 % (3.8-10.2); NEUT % 73.6 % (42.8-82.8); PLATELET COUNT 285 K/MM3 (134-434); RBC 2.19 M/mm3 (3.60-5.2); RDW 16.8 % (11.6-15.6); WHITE BLOOD COUNT 13.3 K/mm3 (4.0-10.0)
[2020-11-12 19:57] LABS: POTASSIUM 4.3 mmol/L (3.5-5.1)
[2020-11-12 19:59] LABS: CALCIUM 8.3 mg/dL (8.5-10.1)
[2020-11-12 20:03] LABS: CREATININE 1.1 mg/dL (0.55-1.3)
[2020-11-12 20:04] LABS: BILIRUBIN,TOTAL 1.4 mg/dL (0.2-1)
[2020-11-12 20:05] LABS: TOT PROT 6.8 g/dl (6.4-8.2)
[2020-11-12 20:53] LABS: ALBUMIN 3.1 g/dl (3.4-5.0)
[2020-11-12] MEDS: HYDROmorphone HCl 2 MG/ML VIAL IVPB PRN (21:46)
[2020-11-12] MEDS ORDERED: ACETAMINOPHEN 325 MG TABLET (FP) PO ONE (21:49)
[2020-11-12] MEDS: oxyCODONE HCL 40 MG SUSTAINED ACTING TABLET PO SCH (21:50)
[2020-11-12] MEDS ORDERED: PT OWN MED DRAWER 7, Y5N ONE (22:47)
[2020-11-12] MEDS: FLUTICASONE PROP 0.05% 16 GM NASAL SPRAY NS SCH ×2 (23:46→23:50)
[2020-11-13] MEDS: PREGABALIN 100 MG CAPSULE PO SCH ×3 (05:43→21:50)
[2020-11-13] MEDS: HYDROmorphone HCl 2 MG/ML VIAL IVPB PRN ×5 (05:44→22:51)
[2020-11-13] MEDS ORDERED: SODIUM CHLORIDE 250 ML IV STA (08:09)
[2020-11-13] MEDS ORDERED: DEXTROSE 5%-WATER - 50 ML IVPB ONE ×2 (09:30→16:54)
[2020-11-13] MEDS ORDERED: PIPERACILLIN/TAZOBACTAM 3.375 GM VIAL IVPB ONE ×2 (09:30→16:54)
[2020-11-13] MEDS ORDERED: PT OWN MED DRAWER 7, Y5N ONE ×5 (09:30→21:47)
[2020-11-13] MEDS: FOLIC ACID 1 MG TABLET (FP) PO SCH (09:41)
[2020-11-13] MEDS: DULoxetine HCL 30 MG CAPSULE.DR PO SCH ×2 (09:41→21:49)
[2020-11-13] MEDS: CYANOCOBALAMIN 1,000 MCG TABLET (FP) PO SCH (09:42)
[2020-11-13] MEDS: CHOLECALCIFEROL (VIT D3) 1,000 UNIT (25 MCG) TABLET PO SCH (09:42)
[2020-11-13] MEDS: METHOCARBAMOL 500 MG TABLET PO SCH ×3 (09:42→22:51)
[2020-11-13] MEDS: PANTOPRAZOLE 40 MG TABLET PO SCH (09:42)
[2020-11-13] MEDS: FONDAPARINUX 10 MG/0.8 ML SQ SCH (09:44)
[2020-11-13 09:45] LABS: BASO % 0.6 % (0-2.0); EOS % 2.5 % (0-4.5); HEMATOCRIT 21.5 % (32.4-45.2); HEMOGLOBIN 7.2 GM/dL (10.7-15.3); LYMPH % 18.2 % (8-40); MCH 33.1 pg (25.7-33.7); MCHC 33.6 g/dl (32.0-36.0); MEAN CELL VOLUME 98.5 fl (80-96); MEAN PLT VOLUME 8.5 fl (7.5-11.1); MONO % 10.3 % (3.8-10.2); NEUT % 68.4 % (42.8-82.8); PLATELET COUNT 277 K/MM3 (134-434); RBC 2.18 M/mm3 (3.60-5.2); RDW 16.7 % (11.6-15.6); RETICULOCYTES 8.42 % (0.5-1.5); WHITE BLOOD COUNT 14.4 K/mm3 (4.0-10.0)
[2020-11-13] MEDS: oxyCODONE HCL 40 MG SUSTAINED ACTING TABLET PO SCH ×2 (09:52→21:49)
[2020-11-13] MEDS: FLUTICASONE PROP 0.05% 16 GM NASAL SPRAY NS SCH ×2 (09:53→21:51)
[2020-11-13] MEDS ORDERED: PIPERACILLIN/TAZOB 3.375 GM 3.375 GM in DEXTROSE 5%-WATER - 50 ML IVPB SCH (10:00)
[2020-11-13 10:02] LABS: POTASSIUM 3.9 mmol/L (3.5-5.1)
[2020-11-13 10:06] LABS: ALBUMIN 3.1 g/dl (3.4-5.0); BLOOD UREA NITROGEN 11.5 mg/dL (7-18)
[2020-11-13 10:08] LABS: BILIRUBIN,DIRECT 0.7 mg/dL (0.0-0.2)
[2020-11-13 10:09] LABS: CREATININE 0.8 mg/dL (0.55-1.3)
[2020-11-13 10:10] LABS: BILIRUBIN,TOTAL 2.4 mg/dL (0.2-1); TOT PROT 6.5 g/dl (6.4-8.2)
[2020-11-13] MEDS ORDERED: POTASSIUM CHLORIDE TABS 10 MEQ TABLET.ER (FP) PO ONE (13:45)
[2020-11-13] MEDS: PIPERACILLIN/TAZOB 3.375 GM 3.375 GM in DEXTROSE 5%-WATER - 50 ML IVPB SCH (17:01)
[2020-11-13] MEDS: SODIUM CHLORIDE 0.45% 1,000 ML IV SCH ×2 (18:51→21:49)
[2020-11-13 22:29] LABS: EPI CELLS 9 /uL (0-25.1); HYALINE CASTS 0 /uL (0-3.1); URINE APPEARANCE CLEAR; URINE BACTERIA 303 /uL (0-1359); URINE BILIRUBIN NEGATIVE (NEGATIVE); URINE COLOR YELLOW; URINE GLUCOSE (UA) NEGATIVE (NEGATIVE); URINE KETONE NEGATIVE (NEGATIVE); URINE LEUK ESTERASE 1+ (NEGATIVE); URINE NITRITE NEGATIVE (NEGATIVE); URINE PROTEIN NEGATIVE (NEGATIVE); URINE RBC 5 /uL (0-23.9); URINE WBC 60 /uL (0-25.8)
[2020-11-14] MEDS ORDERED: DEXTROSE 5%-WATER - 50 ML IVPB ONE ×3 (01:53→16:59)
[2020-11-14] MEDS ORDERED: PIPERACILLIN/TAZOBACTAM 3.375 GM VIAL IVPB ONE ×3 (01:53→16:59)
[2020-11-14] MEDS: PIPERACILLIN/TAZOB 3.375 GM 3.375 GM in DEXTROSE 5%-WATER - 50 ML IVPB SCH ×3 (01:56→17:10)
[2020-11-14] MEDS: HYDROmorphone HCl 2 MG/ML VIAL IVPB PRN ×3 (05:26→21:04)
[2020-11-14] MEDS: METHOCARBAMOL 500 MG TABLET PO SCH ×4 (05:27→22:14)
[2020-11-14] MEDS: PREGABALIN 100 MG CAPSULE PO SCH ×3 (05:27→21:51)
[2020-11-14 08:56] LABS: BASO % 0.9 % (0-2.0); EOS % 4.6 % (0-4.5); HEMATOCRIT 20.9 % (32.4-45.2); HEMOGLOBIN 7.2 GM/dL (10.7-15.3); LYMPH % 22.2 % (8-40); MCH 33.7 pg (25.7-33.7); MCHC 34.4 g/dl (32.0-36.0); MEAN CELL VOLUME 98.1 fl (80-96); MEAN PLT VOLUME 8.9 fl (7.5-11.1); MONO % 8.5 % (3.8-10.2); NEUT % 63.8 % (42.8-82.8); PLATELET COUNT 267 K/MM3 (134-434); RBC 2.13 M/mm3 (3.60-5.2); RDW 16.5 % (11.6-15.6); WHITE BLOOD COUNT 12.2 K/mm3 (4.0-10.0)
[2020-11-14 09:10] LABS: POTASSIUM 4.5 mmol/L (3.5-5.1)
[2020-11-14] MEDS ORDERED: SODIUM CHLORIDE 250 ML IV STA (09:17)
[2020-11-14 09:25] LABS: ALBUMIN 3.1 g/dl (3.4-5.0); CALCIUM 8.3 mg/dL (8.5-10.1)
[2020-11-14 09:26] LABS: BLOOD UREA NITROGEN 8.7 mg/dL (7-18)
[2020-11-14 09:29] LABS: CREATININE 0.9 mg/dL (0.55-1.3)
[2020-11-14 09:30] LABS: BILIRUBIN,TOTAL 2.1 mg/dL (0.2-1); TOT PROT 6.8 g/dl (6.4-8.2)
[2020-11-14] MEDS ORDERED: PT OWN MED DRAWER 7, Y5N ONE ×5 (09:50→23:36)
[2020-11-14] MEDS: oxyCODONE HCL 40 MG SUSTAINED ACTING TABLET PO SCH ×2 (09:54→21:53)
[2020-11-14] MEDS: FOLIC ACID 1 MG TABLET (FP) PO SCH (09:54)
[2020-11-14] MEDS: DULoxetine HCL 30 MG CAPSULE.DR PO SCH ×2 (09:54→21:52)
[2020-11-14] MEDS: CYANOCOBALAMIN 1,000 MCG TABLET (FP) PO SCH (09:56)
[2020-11-14] MEDS: PANTOPRAZOLE 40 MG TABLET PO SCH (09:56)
[2020-11-14] MEDS: CHOLECALCIFEROL (VIT D3) 1,000 UNIT (25 MCG) TABLET PO SCH (09:57)
[2020-11-14] MEDS: FLUTICASONE PROP 0.05% 16 GM NASAL SPRAY NS SCH ×2 (10:01→22:13)
[2020-11-14] MEDS: FONDAPARINUX 10 MG/0.8 ML SQ SCH (10:06)
[2020-11-14] MEDS: SODIUM CHLORIDE 0.45% 1,000 ML IV SCH ×2 (11:23→13:00)
[2020-11-14] MEDS ORDERED: diazePAM 2 MG TABLET PO ONE (18:56)
[2020-11-15] MEDS: HYDROmorphone HCl 2 MG/ML VIAL IVPB PRN ×5 (01:00→20:12)
[2020-11-15] MEDS ORDERED: PIPERACILLIN/TAZOBACTAM 3.375 GM VIAL IVPB ONE ×2 (01:32→08:45)
[2020-11-15] MEDS: PIPERACILLIN/TAZOB 3.375 GM 3.375 GM in DEXTROSE 5%-WATER - 50 ML IVPB SCH ×2 (01:35→10:00)
[2020-11-15] MEDS ORDERED: PT OWN MED DRAWER 7, Y5N ONE ×2 (04:45→13:43)
[2020-11-15] MEDS: METHOCARBAMOL 500 MG TABLET PO SCH ×3 (05:02→17:48)
[2020-11-15] MEDS: PREGABALIN 100 MG CAPSULE PO SCH ×4 (05:02→21:01)
[2020-11-15] MEDS: DULoxetine HCL 30 MG CAPSULE.DR PO SCH ×3 (09:12→21:01)
[2020-11-15] MEDS: FOLIC ACID 1 MG TABLET (FP) PO SCH (10:00)
[2020-11-15] MEDS: CYANOCOBALAMIN 1,000 MCG TABLET (FP) PO SCH (10:00)
[2020-11-15] MEDS: FLUTICASONE PROP 0.05% 16 GM NASAL SPRAY NS SCH ×2 (10:00→21:00)
[2020-11-15] MEDS: oxyCODONE HCL 40 MG SUSTAINED ACTING TABLET PO SCH ×3 (10:03→21:01)
[2020-11-15] MEDS: PANTOPRAZOLE 40 MG TABLET PO SCH (10:04)
[2020-11-15 10:43] LABS: BASO % 0.6 % (0-2.0); EOS % 5.9 % (0-4.5); HEMOGLOBIN 7.8 GM/dL (10.7-15.3); LYMPH % 36.6 % (8-40); MCHC 33.8 g/dl (32.0-36.0); MEAN CELL VOLUME 97.3 fl (80-96); MEAN PLT VOLUME 8.5 fl (7.5-11.1); MONO % 7.3 % (3.8-10.2); NEUT % 49.6 % (42.8-82.8); PLATELET COUNT 324 K/MM3 (134-434); RBC 2.36 M/mm3 (3.60-5.2); RDW 16.4 % (11.6-15.6); WHITE BLOOD COUNT 11.1 K/mm3 (4.0-10.0)
[2020-11-15 10:52] LABS: POTASSIUM 4.2 mmol/L (3.5-5.1)
[2020-11-15 10:55] LABS: CALCIUM 8.6 mg/dL (8.5-10.1)
[2020-11-15 10:56] LABS: ALBUMIN 3.2 g/dl (3.4-5.0); BLOOD UREA NITROGEN 6.7 mg/dL (7-18)
[2020-11-15 10:59] LABS: CREATININE 0.8 mg/dL (0.55-1.3)
[2020-11-15 11:01] LABS: BILIRUBIN,TOTAL 1.8 mg/dL (0.2-1); TOT PROT 7.1 g/dl (6.4-8.2)
[2020-11-15] MEDS ORDERED: CYCLOBENZAPRINE HCL 10 MG TABLET (FP) PO ONE (11:30)
[2020-11-15] MEDS: CHOLECALCIFEROL (VIT D3) 1,000 UNIT (25 MCG) TABLET PO SCH (11:33)
[2020-11-15] MEDS: SODIUM CHLORIDE 0.45% 1,000 ML IV SCH (11:35)
[2020-11-15] MEDS: FONDAPARINUX 10 MG/0.8 ML SQ SCH (11:35)
[2020-11-15] MEDS: AMOX TR/POT CLAV 875MG/125MG TABLETS (FP) PO SCH (17:49)
[2020-11-15] MEDS: SODIUM CHLORIDE 1,000 ML IV SCH (20:13)
[2020-11-15] MEDS: CYCLOBENZAPRINE HCL 5 MG TABLET PO PRN (20:57)
[2020-11-16] MEDS: METHOCARBAMOL 500 MG TABLET PO SCH ×3 (00:29→12:11)
[2020-11-16] MEDS: HYDROmorphone HCl 2 MG/ML VIAL IVPB PRN ×3 (00:29→10:04)
[2020-11-16] MEDS ORDERED: PT OWN MED DRAWER 7, Y5N ONE ×3 (05:50→13:16)
[2020-11-16] MEDS: PREGABALIN 100 MG CAPSULE PO SCH ×2 (05:54→14:11)
[2020-11-16] MEDS: CYCLOBENZAPRINE HCL 5 MG TABLET PO PRN ×2 (05:54→14:11)
[2020-11-16] MEDS: CYANOCOBALAMIN 1,000 MCG TABLET (FP) PO SCH (09:11)
[2020-11-16] MEDS: PANTOPRAZOLE 40 MG TABLET PO SCH (09:12)
[2020-11-16] MEDS: oxyCODONE HCL 40 MG SUSTAINED ACTING TABLET PO SCH (09:12)
[2020-11-16] MEDS: AMOX TR/POT CLAV 875MG/125MG TABLETS (FP) PO SCH ×2 (09:16→19:01)
[2020-11-16] MEDS: DULoxetine HCL 30 MG CAPSULE.DR PO SCH (09:16)
[2020-11-16] MEDS: FOLIC ACID 1 MG TABLET (FP) PO SCH (09:19)
[2020-11-16] MEDS ORDERED: FONDAPARINUX SODIUM SQ SCH (10:00)
[2020-11-16] MEDS: CHOLECALCIFEROL (VIT D3) 1,000 UNIT (25 MCG) TABLET PO SCH (11:02)
[2020-11-16] MEDS: FLUTICASONE PROP 0.05% 16 GM NASAL SPRAY NS SCH (11:02)
[2020-11-16 11:46] LABS: BASO % 0.7 % (0-2.0); EOS % 5.4 % (0-4.5); HEMATOCRIT 22.1 % (32.4-45.2); HEMOGLOBIN 7.7 GM/dL (10.7-15.3); LYMPH % 39.2 % (8-40); MCH 34.5 pg (25.7-33.7); MCHC 34.8 g/dl (32.0-36.0); MEAN CELL VOLUME 99.3 fl (80-96); MEAN PLT VOLUME 7.9 fl (7.5-11.1); MONO % 10.1 % (3.8-10.2); NEUT % 44.6 % (42.8-82.8); PLATELET COUNT 317 K/MM3 (134-434); RBC 2.23 M/mm3 (3.60-5.2); RDW 16.5 % (11.6-15.6)
[2020-11-16 12:09] LABS: CALCIUM 8.4 mg/dL (8.5-10.1)
[2020-11-16 12:10] LABS: BLOOD UREA NITROGEN 6.7 mg/dL (7-18)
[2020-11-16] MEDS: SODIUM CHLORIDE 1,000 ML IV SCH ×2 (12:11→19:01)
[2020-11-16 12:13] LABS: CREATININE 0.8 mg/dL (0.55-1.3)
[2020-11-16 12:14] LABS: BILIRUBIN,TOTAL 1.4 mg/dL (0.2-1); TOT PROT 6.6 g/dl (6.4-8.2)
[2020-11-16 12:19] LABS: POTASSIUM 4.1 mmol/L (3.5-5.1)
[2020-11-16] MEDS ORDERED: LACTOBACILLUS ACIDOPHILUS 1 TABLET PO SCH (13:30)
[2020-11-16 15:17] VITALS: BP 114/76; PULSE 87; TEMP 99.4
[2020-11-16 16:08] LABS: HGB SOLUBILITY Positive (Negative); Hgb C 0 % (0.0); Hgb F 16.5 % (0.0-2.0); Hgb S 79.8 % (0.0)
== END 2020-11-16 19:11 | disposition home or self-care (01) | DRG 812 ==
LOC: JER 17:12 → JERBED 11-12 06:31 → J8W 11-12 14:42
PROVIDERS: ADMIT Internal Medicine; ATTEND Internal Medicine
DX: D57.00 Hb-SS disease with crisis, unspecified (principal); N17.9 Acute kidney failure, unspecified; N39.0 Urinary tract infection, site not specified; E86.0 Dehydration; M79.7 Fibromyalgia; G43.909 Migraine, unspecified, not intractable, without status migrainosus; F41.9 Anxiety disorder, unspecified; M54.9 Dorsalgia, unspecified; R50.9 Fever, unspecified; D72.829 Elevated white blood cell count, unspecified
CPT/HCPCS: 36415; 70450-TC; 71045-TC-FY; 72100-TC-FY; 72148-TC; 76775-TC; 80053; 80307; 81003; 82248; 82436; 82550; 82553; 82565; 83010; 83021; 83615; 83735; 83935; 84100; 84133; 84300; 84703; 85025; 85045; 85651; 85660; 86140; 86850; 86900; 86901; 87040; 87086; 87899; 99285-25; C9803; U0003

== ENCOUNTER 2020-12-12 16:37 | Inpatient (IN) | payer OTHER ==
[2020-12-12] MEDS ORDERED: HYDROmorphone HCL CARPU-JECT 2 MG/1 ML DISP.SYRIN IVPUSH ONE (17:34)
[2020-12-12] MEDS ORDERED: LACTATED RINGERS SOLUTION 1000 ML INFUS.BAG IV ONE (17:38)
[2020-12-12] MEDS ORDERED: HYDROmorphone HCl 2 MG/ML VIAL ONE (18:14)
[2020-12-12 19:05] LABS: BASO % 0.9 % (0-2.0); HEMATOCRIT 23.8 % (32.4-45.2); HEMOGLOBIN 8.1 GM/dL (10.7-15.3); LYMPH % 24.3 % (8-40); MCH 32.8 pg (25.7-33.7); MCHC 33.9 g/dl (32.0-36.0); MEAN CELL VOLUME 96.7 fl (80-96); MEAN PLT VOLUME 8.7 fl (7.5-11.1); MONO % 9.3 % (3.8-10.2); NEUT % 63.5 % (42.8-82.8); PLATELET COUNT 231 K/MM3 (134-434); RBC 2.46 M/mm3 (3.60-5.2); RDW 16.5 % (11.6-15.6); RETICULOCYTES 4.15 % (0.5-1.5); WHITE BLOOD COUNT 9.9 K/mm3 (4.0-10.0)
[2020-12-12 19:17] LABS: INR 1.13 (0.83-1.09); PROTHROMBIN TIME (PATIENT) 13.9 SEC (9.7-13.0)
[2020-12-12 19:20] LABS: ACTIVATED PTT 30.6 SECONDS (25.2-36.5)
[2020-12-12 20:13] LABS: CHLORIDE 103 mmol/L (98-107); POTASSIUM 3.7 mmol/L (3.5-5.1); SODIUM 137 mmol/L (136-145)
[2020-12-12 20:15] LABS: CALCIUM 8.3 mg/dL (8.5-10.1)
[2020-12-12 20:16] LABS: ALBUMIN 3.9 g/dl (3.4-5.0); ANION GAP 7 MMOL/L (8-16); BLOOD UREA NITROGEN 12.1 mg/dL (7-18); CO2 27 mmol/L (21-32); GLUCOSE,RANDOM 71 mg/dL (74-106)
[2020-12-12 20:18] LABS: BILIRUBIN,DIRECT 0.7 mg/dL (0.0-0.2)
[2020-12-12 20:19] LABS: CREATININE 1.4 mg/dL (0.55-1.3); SGOT/AST 61 U/L (15-37); SGPT/ALT 29 U/L (13-61)
[2020-12-12 20:20] LABS: BILIRUBIN,TOTAL 2.1 mg/dL (0.2-1)
[2020-12-12 20:22] LABS: ALK PHOS 142 U/L (45-117)
[2020-12-12 22:14] LABS: LDH 427 U/L (84-246)
[2020-12-13] MEDS ORDERED: PHENYTOIN SODIUM 100 MG/2 ML VIAL IVPB ONE (01:01)
[2020-12-13] MEDS ORDERED: HYDROmorphone HCl 2 MG/ML VIAL ONE ×2 (01:04→11:09)
[2020-12-13] MEDS ORDERED: diphenhydrAMINE HCL 50 MG CAPSULE PO ONE (01:13)
[2020-12-13] MEDS ORDERED: HYDROmorphone HCL CARPU-JECT 2 MG/1 ML DISP.SYRIN IM ONE (02:36)
[2020-12-13] MEDS ORDERED: HYDROmorphone HCl 2 MG/ML VIAL IM PRN ×2 (05:38→08:26)
[2020-12-13] MEDS: FOLIC ACID 1 MG TABLET (FP) PO SCH (10:00)
[2020-12-13] MEDS: DULoxetine HCL 30 MG CAPSULE.DR PO SCH ×2 (10:00→22:26)
[2020-12-13] MEDS ORDERED: diphenhydrAMINE HCL 25 MG CAPSULE (FP) PO SCH (10:00)
[2020-12-13] MEDS ORDERED: ZINC SULFATE 220 MG CAPSULE (FP) PO SCH (10:00)
[2020-12-13] MEDS: ASCORBIC ACID 500 MG TABLET (FP) PO SCH (10:05)
[2020-12-13] MEDS: LACTATED RINGERS SOLUTION 1,000 ML/1,000 ML INFUS.BAG IV SCH ×2 (10:33→22:28)
[2020-12-13] MEDS ORDERED: ZINC SULFATE 220 MG CAPSULE (FP) ONE (10:44)
[2020-12-13] MEDS ORDERED: diphenhydrAMINE HCL 25 MG CAPSULE (FP) PO ONE ×2 (10:44→11:10)
[2020-12-13] MEDS ORDERED: SENNOSIDES 8.6MG TABLET (FP) PO ONE (10:44)
[2020-12-13] MEDS ORDERED: CHOLECALCIFEROL (VIT D3) 1,000 UNIT (25 MCG) TABLET ONE (10:45)
[2020-12-13] MEDS ORDERED: DULoxetine HCL 30 MG CAPSULE.DR PO ONE (10:46)
[2020-12-13] MEDS ORDERED: FOLIC ACID 1 MG TABLET (FP) ONE (10:46)
[2020-12-13] MEDS: POLYETHYLENE GLYCOL 3350 119 GM BTL PO SCH (11:05)
[2020-12-13] MEDS: CHOLECALCIFEROL (VIT D3) 5000 UNITS (125 MCG) CAP PO SCH (11:06)
[2020-12-13] MEDS ORDERED: ACETAMINOPHEN 650 MG/20.3 ML ORAL SOLUTION (CUPS) PO STA (17:26)
[2020-12-13] MEDS ORDERED: BAMLANIVIMAB 700 MG, ETESEVIMAB 1,400 MG in SODIUM CHLORIDE 250 ML IVPB ONE (17:36)
[2020-12-13 18:55] LABS: EPI CELLS 6 /uL (0-25.1); HYALINE CASTS 0 /uL (0-3.1); PH,URINE 6.5 (5.0-8.0); URINE APPEARANCE TURBID; URINE BACTERIA >9,000 /uL (0-1359); URINE BILIRUBIN NEGATIVE (NEGATIVE); URINE COLOR DK YELLOW; URINE GLUCOSE (UA) NEGATIVE (NEGATIVE); URINE KETONE NEGATIVE (NEGATIVE); URINE LEUK ESTERASE 3+ (NEGATIVE); URINE NITRITE NEGATIVE (NEGATIVE); URINE PROTEIN 1+ (NEGATIVE); URINE RBC 51 /uL (0-23.9); URINE UROBILINOGEN 0.2 mg/dL (0.2-1.0); URINE WBC 2054 /uL (0-25.8)
[2020-12-13 19:10] LABS: BASO % 0.7 % (0-2.0); EOS % 0.9 % (0-4.5); HEMATOCRIT 21.4 % (32.4-45.2); HEMOGLOBIN 7.2 GM/dL (10.7-15.3); LYMPH % 17.5 % (8-40); MCH 32.2 pg (25.7-33.7); MCHC 33.8 g/dl (32.0-36.0); MEAN CELL VOLUME 95.4 fl (80-96); MEAN PLT VOLUME 8.6 fl (7.5-11.1); MONO % 13.2 % (3.8-10.2); NEUT % 67.7 % (42.8-82.8); PLATELET COUNT 215 K/MM3 (134-434); RBC 2.24 M/mm3 (3.60-5.2); RDW 16.8 % (11.6-15.6); WHITE BLOOD COUNT 8.9 K/mm3 (4.0-10.0)
[2020-12-13 19:30] LABS: POTASSIUM 3.8 mmol/L (3.5-5.1)
[2020-12-13 19:32] LABS: ALBUMIN 3.3 g/dl (3.4-5.0)
[2020-12-13 19:33] LABS: BLOOD UREA NITROGEN 9.8 mg/dL (7-18); MAGNESIUM 2.2 mg/dL (1.8-2.4)
[2020-12-13 19:36] LABS: CREATININE 1.1 mg/dL (0.55-1.3); PHOSPHOROUS 2.7 mg/dL (2.5-4.9)
[2020-12-13 19:37] LABS: BILIRUBIN,TOTAL 1.7 mg/dL (0.2-1); TOT PROT 7.1 g/dl (6.4-8.2)
[2020-12-13 20:29] LABS: ERYTHROCYTE SEDIMENTATION RATE 49 mm/hr (0-20)
[2020-12-13] MEDS: SENNOSIDES 8.6MG TABLET (FP) PO SCH (22:27)
[2020-12-13] MEDS: diphenhydrAMINE HCL 25 MG CAPSULE (FP) PO SCH (22:27)
[2020-12-13] MEDS ORDERED: HYDROmorphone HCl 2 MG/ML VIAL IM ONE (23:49)
[2020-12-14 00:08] VITALS: BMI 25.4
[2020-12-14] MEDS: SENNOSIDES 8.6MG TABLET (FP) PO SCH (00:47)
[2020-12-14] MEDS ORDERED: HYDROmorphone HCl 2 MG/ML VIAL ONE (05:01)
[2020-12-14] MEDS ORDERED: ACETAMINOPHEN 325 MG TABLET (FP) PO PRN (07:41)
[2020-12-14] MEDS: POLYETHYLENE GLYCOL 3350 119 GM BTL PO SCH (11:14)
[2020-12-14] MEDS: DULoxetine HCL 30 MG CAPSULE.DR PO SCH (11:14)
[2020-12-14] MEDS: ASCORBIC ACID 500 MG TABLET (FP) PO SCH (11:14)
[2020-12-14] MEDS: FOLIC ACID 1 MG TABLET (FP) PO SCH (11:15)
[2020-12-14] MEDS: diphenhydrAMINE HCL 25 MG CAPSULE (FP) PO SCH (11:27)
[2020-12-14] MEDS: CHOLECALCIFEROL (VIT D3) 5000 UNITS (125 MCG) CAP PO SCH (11:27)
[2020-12-14] MEDS: LACTATED RINGERS SOLUTION 1,000 ML/1,000 ML INFUS.BAG IV SCH (11:31)
[2020-12-14] MEDS ORDERED: PT OWN MED DRAWER 7, Y5N ONE (13:07)
[2020-12-14 15:01] VITALS: BP 82/50; PULSE 92; TEMP 99.3
[2020-12-15 11:07] LABS: HEP B CORE AB, TOT Negative (Negative)
== END 2020-12-14 21:30 | disposition home or self-care (01) | DRG 177 ==
LOC: JER 16:37 → JERBED 12-13 02:01 → J6S 12-13 21:25
PROVIDERS: ADMIT Internal Medicine; ATTEND Student in an Organized Health Care Education/Training Program
PROC: 3E0330M Introduction of Antineoplastic, Monoclonal Antibody, into Peripheral Vein, Percutaneous Approach (ICD-10-PCS; principal; 2020-12-12)
DX: U07.1 COVID-19 (principal); J12.82 Pneumonia due to coronavirus disease 2019; N17.9 Acute kidney failure, unspecified; D57.1 Sickle-cell disease without crisis; M79.7 Fibromyalgia; N76.0 Acute vaginitis
CPT/HCPCS: 36415; 71045-TC-FY; 71275-TC; 80053; 80074; 81003; 82248; 82728; 83615; 83735; 84100; 84484; 84703; 85025; 85045; 85379; 85384; 85610; 85651; 85730; 86140; 86704; 86706; 86707; 86708; 86709; 86803; 86850; 86900; 86901; 87086; 87186; 87340; 93005; 93010; 99285-25; C9803; M0239; Q0239; Q0245; U0003; U0005

== ENCOUNTER 2021-09-20 18:45 | Emergency (ER) | payer OTHER ==
[2021-09-20 19:29] VITALS: BMI 32.8
[2021-09-20] MEDS ORDERED: HYDROmorphone HCL CARPU-JECT 2 MG/1 ML DISP.SYRIN IVPUSH ONE (22:25)
[2021-09-20] MEDS ORDERED: DOCUSATE SODIUM 100 MG CAPSULE (FP) PO ONE ×2 (22:25→22:58)
[2021-09-20] MEDS ORDERED: HYDROmorphone HCL CARPU-JECT 2 MG/1 ML DISP.SYRIN IM ONE (22:57)
[2021-09-20] MEDS ORDERED: HYDROmorphone HCl 2 MG/ML VIAL ONE ×2 (22:58→23:36)
[2021-09-20] MEDS ORDERED: SODIUM CHLORIDE 1,000 ML IV STA (23:36)
[2021-09-21 00:03] LABS: BASO % 0.8 % (0-2.0); EOS % 2.1 % (0-4.5); HEMATOCRIT 21.9 % (32.4-45.2); HEMOGLOBIN 7.6 GM/dL (10.7-15.3); LYMPH % 25.4 % (8-40); MCH 32.7 pg (25.7-33.7); MCHC 34.5 g/dl (32.0-36.0); MEAN CELL VOLUME 94.9 fl (80-96); MEAN PLT VOLUME 7.5 fl (7.5-11.1); NEUT % 58.7 % (42.8-82.8); PLATELET COUNT 224 10^3/uL (134-434); RBC 2.31 M/mm3 (3.60-5.2); WHITE BLOOD COUNT 16.9 K/mm3 (4.0-10.0)
[2021-09-21 00:24] LABS: CALCIUM 8.3 mg/dL (8.5-10.1)
[2021-09-21 00:25] LABS: ALBUMIN 3.8 g/dl (3.4-5.0); BLOOD UREA NITROGEN 24.7 mg/dL (7-18); MAGNESIUM 2.3 mg/dL (1.8-2.4)
[2021-09-21 00:28] LABS: CREATININE 1.6 mg/dL (0.55-1.3); INR 1.31 (0.83-1.09); PROTHROMBIN TIME (PATIENT) 15.4 SEC (9.7-13.0)
[2021-09-21 00:29] LABS: BILIRUBIN,TOTAL 2.3 mg/dL (0.2-1); TOT PROT 7.6 g/dl (6.4-8.2)
[2021-09-21 00:31] LABS: ACTIVATED PTT 21.9 SECONDS (25.2-36.5)
[2021-09-21] MEDS ORDERED: CEFTRIAXONE 1 GM in DEXTROSE 5%-WATER - 50 ML IVPB ONE ×2 (01:01→12:27)
[2021-09-21] MEDS ORDERED: AZITHROMYCIN IVPB 500 MG in DEXTROSE 5%-WATER - 250 ML IVPB ONE ×2 (01:01→12:27)
[2021-09-21] MEDS ORDERED: ACETAMINOPHEN 1000 MG/100 ML BAG IVPB ONE (01:03)
[2021-09-21] MEDS ORDERED: ACETAMINOPHEN INJECTION 100 ML IVPB ONE (01:03)
[2021-09-21] MEDS ORDERED: AZITHROMYCIN IVPB 500 MG/250 ML BAG IVPB ONE (01:04)
[2021-09-21] MEDS ORDERED: CEFTRIAXONE 1 GM/50 ML BAG ONE (01:04)
[2021-09-21] MEDS ORDERED: HYDROmorphone HCL CARPU-JECT 2 MG/1 ML DISP.SYRIN IVPUSH ONE ×2 (02:18→03:47)
[2021-09-21] MEDS ORDERED: HYDROmorphone HCl 2 MG/ML VIAL ONE ×2 (02:20→03:47)
[2021-09-21] MEDS ORDERED: ONDANSETRON 4 MG TABLET PO ONE (03:47)
[2021-09-21] MEDS ORDERED: ONDANSETRON 4 MG/2 ML VIAL ONE (03:58)
[2021-09-21 06:03] VITALS: BP 122/80; PULSE 113; TEMP 98.8
== END 2021-09-21 03:55 | disposition short-term general hospital (02) ==
LOC: JER 18:45
PROC: 3E0333Z Introduction of Anti-inflammatory into Peripheral Vein, Percutaneous Approach (ICD-10-PCS; principal; 2021-09-20)
PROC: 3E03329 Introduction of Other Anti-infective into Peripheral Vein, Percutaneous Approach (ICD-10-PCS; 2021-09-20)
PROC: 3E03329 Introduction of Other Anti-infective into Peripheral Vein, Percutaneous Approach (ICD-10-PCS; 2021-09-20)
PROC: 3E03329 Introduction of Other Anti-infective into Peripheral Vein, Percutaneous Approach (ICD-10-PCS; 2021-09-20)
DX: D57.211 Sickle-cell/Hb-C disease with acute chest syndrome (principal)
CPT/HCPCS: 36415; 71046-TC-FY; 80053; 82550; 83735; 84484; 85025; 85045; 85379; 85610; 85730; 93005; 93010; 96374; 96375; 96376; 99285-25; C9803; J0131; U0003; U0005

== ENCOUNTER 2023-11-02 22:08 | Inpatient (IN) | payer OTHER ==
[2023-11-02] MEDS ORDERED: ALBUTEROL SO4 2.5/IPRATROPIUM 0.5 INH SOL 3 ML VIAL.NEB. NEB ONE (22:16)
[2023-11-02] MEDS ORDERED: methylPREDNISolone NA SUCC 125 MG/2 ML VIAL ONE (22:30)
[2023-11-02] MEDS ORDERED: MAGNESIUM SULF 50% (8.12 MEQ/2 ML-1 GM VIAL) ONE (22:30)
[2023-11-02] MEDS ORDERED: AZITHROMYCIN IVPB 500 MG in DEXTROSE 5%-WATER - 250 ML IVPB ONE (22:33)
[2023-11-02] MEDS ORDERED: morphine SULFATE 4 MG/ML VIAL ONE (22:33)
[2023-11-02 22:45] VITALS: BMI 30.4
[2023-11-02] MEDS: methylPREDNISolone NA SUCC 125 MG/2 ML VIAL IVPUSH ONE (22:51)
[2023-11-02] MEDS: SODIUM CHLORIDE 1,000 ML IV STA (22:51)
[2023-11-02] MEDS: MAGNESIUM SULFATE IN WATER 2 GM/50 ML IVPB IVPB ONE (22:51)
[2023-11-02] MEDS ORDERED: CEFTRIAXONE 1 GM/50 ML BAG ONE ×2 (22:55→23:04)
[2023-11-02 23:01] LABS: VENOUS O2 SATURATION 93.6 % (70-80); VENOUS PCO2 62.9 mmHg (38-52)
[2023-11-02] MEDS: CEFTRIAXONE 1,000 MG in DEXTROSE 5%-WATER - 50 ML IVPB ONE (23:01)
[2023-11-02] MEDS: morphine CARPU-JECT 4 MG/1 ML DISP.SYRIN IVPUSH ONE (23:01)
[2023-11-02 23:03] LABS: BASO % 0.2 % (0-2.0); EOS % 0.4 % (0-4.5); HEMATOCRIT 22.6 % (32.4-45.2); HEMOGLOBIN 7.5 GM/dL (10.7-15.3); LYMPH % 18.1 % (8-40); MCH 31.9 pg (25.7-33.7); MCHC 33.1 g/dl (32.0-36.0); MEAN CELL VOLUME 96.6 fl (80-96); MEAN PLT VOLUME 7.4 fl (7.5-11.1); MONO % 4.9 % (3.8-10.2); NEUT % 76.4 % (42.8-82.8); PLATELET COUNT 303 10^3/uL (134-434); RBC 2.34 M/mm3 (3.60-5.2); RDW 20.4 % (11.6-15.6); VENOUS PH 7.105 (7.310-7.410); WHITE BLOOD COUNT 26.3 K/mm3 (4.0-10.0)
[2023-11-02 23:08] LABS: INR 1.28 (0.83-1.09); PROTHROMBIN TIME (PATIENT) 14.8 SEC (9.7-13.0)
[2023-11-02 23:11] LABS: ACTIVATED PTT 30.1 SECONDS (25.2-36.5)
[2023-11-02 23:20] LABS: CHLORIDE 110 mmol/L (98-107); POTASSIUM 3.5 mmol/L (3.5-5.1); SODIUM 144 mmol/L (136-145)
[2023-11-02 23:22] LABS: CALCIUM 8.7 mg/dL (8.5-10.1)
[2023-11-02 23:23] LABS: ALBUMIN 3.8 g/dl (3.4-5.0); ANION GAP 13 mmol/L (4-13); CO2 21 mmol/L (21-32); GLUCOSE,RANDOM 103 mg/dL (74-106)
[2023-11-02 23:26] LABS: CREATININE 2.2 mg/dL (0.55-1.3); SGOT/AST 59 U/L (15-37); SGPT/ALT 40 U/L (13-61)
[2023-11-02 23:27] LABS: TOT PROT 7.7 g/dl (6.4-8.2)
[2023-11-02 23:28] LABS: BILIRUBIN,TOTAL 4.5 mg/dL (0.2-1); LACTIC ACID 4.9 mmol/L (0.4-2.0)
[2023-11-02 23:29] LABS: ALK PHOS 177 U/L (45-117)
[2023-11-02 23:37] LABS: ANISOCYTOSIS 1+; MACROCYTOSIS 0; TARGET CELLS 1+
[2023-11-02] MEDS: AZITHROMYCIN IVPB 500 MG/250 ML BAG IVPB ONE (23:39)
[2023-11-02] MEDS: LACTATED RINGERS SOLUTION 1,000 ML/1,000 ML INFUS.BAG IV SCH (23:39)
[2023-11-03 03:45] LABS: LACTIC ACID 2.2 mmol/L (0.4-2.0)
[2023-11-03] MEDS ORDERED: METOCLOPRAMIDE HCL 10 MG TABLET (FP) PO PRN (06:05)
[2023-11-03] MEDS ORDERED: ALBUTEROL SO4 HFA INHALER IH PRN (06:10)
[2023-11-03] MEDS: ACETAMINOPHEN 1000 MG/100 ML BAG IVPB PRN (06:26)
[2023-11-03] MEDS: DEXTROSE 5%-0.45% SALINE 1,000 ML IV SCH (06:29)
[2023-11-03] MEDS: ALBUTEROL SO4 2.5/IPRATROPIUM 0.5 INH SOL 3 ML VIAL.NEB. NEB SCH (07:30)
[2023-11-03 09:01] LABS: ALBUMIN 3.5 g/dl (3.4-5.0); HEMATOCRIT 20.5 % (32.4-45.2); MCH 31.9 pg (25.7-33.7); MCHC 33.3 g/dl (32.0-36.0); MEAN CELL VOLUME 95.8 fl (80-96); PLATELET COUNT 261 10^3/uL (134-434); RBC 2.14 M/mm3 (3.60-5.2); RDW 20.7 % (11.6-15.6); WHITE BLOOD COUNT 27.6 K/mm3 (4.0-10.0)
[2023-11-03 09:02] LABS: POTASSIUM 4.3 mmol/L (3.5-5.1)
[2023-11-03 09:04] LABS: BILIRUBIN,DIRECT 0.9 mg/dL (0.0-0.2)
[2023-11-03 09:06] LABS: BILIRUBIN,TOTAL 2.9 mg/dL (0.2-1); TOT PROT 7.2 g/dl (6.4-8.2)
[2023-11-03 09:09] LABS: BLOOD UREA NITROGEN 18.7 mg/dL (7-18)
[2023-11-03 09:10] LABS: ALBUMIN 3.5 g/dl (3.4-5.0); CALCIUM 8.9 mg/dL (8.5-10.1); MAGNESIUM 2.9 mg/dL (1.8-2.4)
[2023-11-03] MEDS: methylPREDNISolone NA SUCC 40 MG/1 ML VIAL IVPUSH SCH (09:11)
[2023-11-03] MEDS: PIPERACILLIN/TAZOB 3.375 GM 3.375 GM in DEXTROSE 5%-WATER - 50 ML IVPB SCH (09:12)
[2023-11-03 09:13] LABS: BILIRUBIN,DIRECT 0.9 mg/dL (0.0-0.2); CREATININE 2.3 mg/dL (0.55-1.3)
[2023-11-03 09:14] LABS: BILIRUBIN,TOTAL 2.9 mg/dL (0.2-1); HEMOGLOBIN 6.8 GM/dL (10.7-15.3)
[2023-11-03 09:15] LABS: TOT PROT 7.2 g/dl (6.4-8.2)
[2023-11-03] MEDS: HYDROmorphone HCl 2 MG/ML VIAL IVPUSH PRN (09:28)
[2023-11-03] MEDS: PREGABALIN 100 MG CAPSULE PO SCH (09:40)
[2023-11-03] MEDS: METHOCARBAMOL 500 MG TABLET PO SCH (09:40)
[2023-11-03] MEDS: PANTOPRAZOLE 40 MG TABLET PO SCH (09:40)
[2023-11-03] MEDS: FOLIC ACID 1 MG TABLET (FP) PO SCH (09:40)
[2023-11-03] MEDS: TOPIRAMATE 100 MG TABLET PO SCH (09:40)
[2023-11-03] MEDS: DULoxetine HCL 30 MG CAPSULE.DR PO SCH (09:40)
[2023-11-03] MEDS ORDERED: TOPIRAMATE 100 MG TABLET PO SCH (10:00)
[2023-11-03] MEDS ORDERED: PREGABALIN 100 MG CAPSULE PO SCH ×2 (10:00→14:00)
[2023-11-03 12:26] LABS: ANISOCYTOSIS 2+; MACROCYTOSIS 0
[2023-11-03] MEDS: propRANOLol HCL 10 MG TABLET PO SCH (13:28)
[2023-11-03 17:12] LABS: EPI CELLS >36 /uL (0-25.1); HYALINE CASTS 7 /uL (0-3.1); URINE APPEARANCE CLOUDY; URINE BACTERIA 6 /uL (0-1359); URINE BILIRUBIN NEGATIVE (NEGATIVE); URINE COLOR YELLOW; URINE GLUCOSE (UA) NEGATIVE (NEGATIVE); URINE KETONE NEGATIVE (NEGATIVE); URINE LEUK ESTERASE NEGATIVE (NEGATIVE); URINE NITRITE NEGATIVE (NEGATIVE); URINE PROTEIN 1+ (NEGATIVE); URINE UROBILINOGEN 0.2 mg/dL (0.2-1.0)
[2023-11-03 17:30] LABS: URINE RBC 22.4 /uL (0-23.9); URINE WBC 103.9 /uL (0-25.8)
[2023-11-03] MEDS: PIPERACILLIN/TAZOB 2.25 GM 2.25 GM in DEXTROSE 5%-WATER - 50 ML IVPB SCH (17:54)
[2023-11-04] MEDS ORDERED: PIPERACILLIN/TAZOB 3.375 GM 3.375 GM in DEXTROSE 5%-WATER - 50 ML IVPB SCH (02:00)
[2023-11-04 08:31] LABS: POTASSIUM 4.5 mmol/L (3.5-5.1)
[2023-11-04 08:33] LABS: ALBUMIN 3.4 g/dl (3.4-5.0); BLOOD UREA NITROGEN 28.9 mg/dL (7-18); CALCIUM 8.5 mg/dL (8.5-10.1); MAGNESIUM 3.2 mg/dL (1.8-2.4)
[2023-11-04 08:35] LABS: HEMOGLOBIN 7.4 GM/dL (10.7-15.3); MCH 31.5 pg (25.7-33.7); MEAN CELL VOLUME 90.1 fl (80-96); MEAN PLT VOLUME 7.7 fl (7.5-11.1); PLATELET COUNT 257 10^3/uL (134-434); RBC 2.33 M/mm3 (3.60-5.2); RDW 22.2 % (11.6-15.6); WHITE BLOOD COUNT 24.3 K/mm3 (4.0-10.0)
[2023-11-04 08:36] LABS: CREATININE 2.4 mg/dL (0.55-1.3)
[2023-11-04 08:38] LABS: TOT PROT 6.6 g/dl (6.4-8.2)
[2023-11-04 10:16] LABS: ANISOCYTOSIS 3+; MACROCYTOSIS 0; TARGET CELLS 1+
[2023-11-04] MEDS: POLYETHYLENE GLYCOL (HEALTHYLAX) 3350 17 GM PACKET PO SCH (10:16)
[2023-11-05 00:35] LABS: PH,URINE 5.5 (5.0-8.0); URINE APPEARANCE CLEAR; URINE BILIRUBIN NEGATIVE (NEGATIVE); URINE COLOR YELLOW; URINE GLUCOSE (UA) NEGATIVE (NEGATIVE); URINE KETONE NEGATIVE (NEGATIVE); URINE LEUK ESTERASE NEGATIVE (NEGATIVE); URINE NITRITE NEGATIVE (NEGATIVE); URINE PROTEIN NEGATIVE (NEGATIVE); URINE UROBILINOGEN 0.2 mg/dL (0.2-1.0)
[2023-11-05 08:54] LABS: HEMATOCRIT 23.4 % (32.4-45.2); HEMOGLOBIN 7.8 GM/dL (10.7-15.3); MCH 30.9 pg (25.7-33.7); MCHC 33.5 g/dl (32.0-36.0); MEAN CELL VOLUME 92.2 fl (80-96); MEAN PLT VOLUME 7.6 fl (7.5-11.1); PLATELET COUNT 260 10^3/uL (134-434); RBC 2.53 M/mm3 (3.60-5.2)
[2023-11-05] MEDS ORDERED: HYDROmorphone HCl 2 MG/ML VIAL IVPUSH PRN ×2 (08:59→17:28)
[2023-11-05 09:07] LABS: POTASSIUM 4.3 mmol/L (3.5-5.1); WHITE BLOOD COUNT 25.8 K/mm3 (4.0-10.0)
[2023-11-05 09:12] LABS: URINE BARBITURATES NEGATIVE (NEGATIVE)
[2023-11-05 09:13] LABS: METHADONE, UR NEGATIVE (NEGATIVE); PHENCYCLIDINE,URINE NEGATIVE (NEGATIVE); URINE BENZODIAZEPINES NEGATIVE (NEGATIVE)
[2023-11-05 09:13] LABS: ALBUMIN 3.6 g/dl (3.4-5.0); BLOOD UREA NITROGEN 29.6 mg/dL (7-18); MAGNESIUM 2.4 mg/dL (1.8-2.4)
[2023-11-05 09:16] LABS: CREATININE 2.2 mg/dL (0.55-1.3)
[2023-11-05 09:18] LABS: BILIRUBIN,TOTAL 2.3 mg/dL (0.2-1); TOT PROT 7.3 g/dl (6.4-8.2)
[2023-11-05 09:19] LABS: COCAINE, UR NEGATIVE (NEGATIVE); OPIATES, URI POSITIVE (NEGATIVE); URINE AMPHETAMINES NEGATIVE (NEGATIVE)
[2023-11-05] MEDS: METHYL SALICYLATE/MENTHOL OINT 30 GM TUBE TP SCH (10:12)
[2023-11-05] MEDS: NYSTATIN 500,000 UNITS/5 ML SUSPENSION PO SCH (12:35)
[2023-11-05 12:46] LABS: ANISOCYTOSIS 2+; MACROCYTOSIS 0
[2023-11-05] MEDS: AMOX TR/POT CLAV 500MG/125MG TABLETS (FP) PO SCH (17:26)
[2023-11-05] MEDS: methylPREDNISolone NA SUCC 40 MG/1 ML VIAL IVPUSH SCH (17:26)
[2023-11-05] MEDS: SENNOSIDES/DOCUSATE COMBO (SENNA PLUS) TABLET (UD) PO SCH (21:21)
[2023-11-05] MEDS: HYDROmorphone HCl 2 MG/ML VIAL IVPB PRN (21:22)
[2023-11-06 09:08] LABS: HEMATOCRIT 23.9 % (32.4-45.2); HEMOGLOBIN 7.9 GM/dL (10.7-15.3); MCH 31.3 pg (25.7-33.7); MCHC 32.9 g/dl (32.0-36.0); MEAN CELL VOLUME 94.9 fl (80-96); MEAN PLT VOLUME 7.8 fl (7.5-11.1); PLATELET COUNT 197 10^3/uL (134-434); RBC 2.51 M/mm3 (3.60-5.2); RDW 22.6 % (11.6-15.6)
[2023-11-06 09:13] LABS: WHITE BLOOD COUNT 26.3 K/mm3 (4.0-10.0)
[2023-11-06] MEDS ORDERED: HYDROmorphone HCl 2 MG/ML VIAL IVPB PRN ×4 (09:35→15:42)
[2023-11-06 10:29] LABS: ANISOCYTOSIS 2+; MACROCYTOSIS 0; TARGET CELLS 1+
[2023-11-06] MEDS: methylPREDNISolone NA SUCC 40 MG/1 ML VIAL IVPUSH SCH (11:57)
[2023-11-06] MEDS: PATIENT'S OWN MEDICATION (NON-FORMULARY) (Fluticasone Propionate [Flovent Diskus] 50 MCG B IH SCH (12:01)
[2023-11-06] MEDS: HYDROmorphone HCl 2 MG/ML VIAL IVPUSH PRN (13:37)
[2023-11-06] MEDS: FLUTICASONE PROP 0.05% 16 GM NASAL SPRAY NS SCH (14:13)
[2023-11-06] MEDS: CALAMINE 8% TOPICAL LOTION 177 ML BOTTLE TP PRN (14:19)
[2023-11-06] MEDS: HYDROmorphone HCl 2 MG/ML VIAL IVPB PRN (16:54)
[2023-11-07 07:52] LABS: HEMATOCRIT 21.5 % (32.4-45.2); HEMOGLOBIN 7.4 GM/dL (10.7-15.3); MCH 31.7 pg (25.7-33.7); MCHC 34.3 g/dl (32.0-36.0); MEAN CELL VOLUME 92.4 fl (80-96); MEAN PLT VOLUME 7.4 fl (7.5-11.1); PLATELET COUNT 214 10^3/uL (134-434); RBC 2.33 M/mm3 (3.60-5.2); RDW 22.1 % (11.6-15.6)
[2023-11-07 07:53] LABS: WHITE BLOOD COUNT 26.8 K/mm3 (4.0-10.0)
[2023-11-07 08:12] LABS: POTASSIUM 3.7 mmol/L (3.5-5.1)
[2023-11-07 08:13] LABS: CALCIUM 8.6 mg/dL (8.5-10.1)
[2023-11-07 08:14] LABS: BLOOD UREA NITROGEN 27.4 mg/dL (7-18)
[2023-11-07 08:17] LABS: CREATININE 1.7 mg/dL (0.55-1.3)
[2023-11-07] MEDS: methylPREDNISolone NA SUCC 40 MG/1 ML VIAL IVPUSH SCH (09:23)
[2023-11-07] MEDS ORDERED: HYDROmorphone HCl 2 MG/ML VIAL IVPB PRN (15:05)
[2023-11-07] MEDS: HYDROmorphone HCl 2 MG/ML VIAL IVPUSH ONE (15:37)
[2023-11-07] MEDS: DEXTROSE 5%-0.45% SALINE 1,000 ML IV SCH (15:51)
[2023-11-07] MEDS: HYDROmorphone HCl 2 MG/ML VIAL IVPB PRN (20:36)
[2023-11-08 08:19] LABS: POTASSIUM 3.8 mmol/L (3.5-5.1)
[2023-11-08 08:23] LABS: ALBUMIN 3.7 g/dl (3.4-5.0)
[2023-11-08 08:24] LABS: BLOOD UREA NITROGEN 25.3 mg/dL (7-18); CALCIUM 8.9 mg/dL (8.5-10.1)
[2023-11-08 08:26] LABS: BILIRUBIN,DIRECT 0.8 mg/dL (0.0-0.2); CREATININE 1.8 mg/dL (0.55-1.3)
[2023-11-08 08:28] LABS: BILIRUBIN,TOTAL 2.6 mg/dL (0.2-1); TOT PROT 7.1 g/dl (6.4-8.2)
[2023-11-08] MEDS: DEXTROSE 5%-0.45% SALINE 1,000 ML IV SCH (09:45)
[2023-11-08] MEDS: BUDESONIDE/FORMETEROL FUMARATE 160/4.5 mcg INHALER IH SCH (12:23)
[2023-11-09] MEDS: MINERAL OIL/PET HY-PHL TOPICAL OINTMENT 454 GM JAR TP SCH (10:59)
[2023-11-09] MEDS: HYDROmorphone HCl 2 MG/ML VIAL IVPB PRN (11:29)
[2023-11-10 09:03] LABS: HEMATOCRIT 19.1 % (32.4-45.2); MCH 31.7 pg (25.7-33.7); MCHC 34.1 g/dl (32.0-36.0); MEAN CELL VOLUME 92.9 fl (80-96); MEAN PLT VOLUME 7.9 fl (7.5-11.1); PLATELET COUNT 158 10^3/uL (134-434); RBC 2.06 M/mm3 (3.60-5.2); RDW 22.4 % (11.6-15.6)
[2023-11-10 09:08] LABS: WHITE BLOOD COUNT 21.8 K/mm3 (4.0-10.0)
[2023-11-10 09:11] LABS: HEMOGLOBIN 6.5 GM/dL (10.7-15.3)
[2023-11-10 09:24] LABS: POTASSIUM 3.4 mmol/L (3.5-5.1)
[2023-11-10 09:25] LABS: CALCIUM 7.7 mg/dL (8.5-10.1)
[2023-11-10 09:30] LABS: CREATININE 1.5 mg/dL (0.55-1.3)
[2023-11-10] MEDS ORDERED: POTASSIUM CHLORIDE ORAL LIQUID 20 MEQ/15 ML PO ONE (11:00)
[2023-11-10 12:09] LABS: CORRECTED WBC 18.79 K/mm3
[2023-11-10] MEDS: POTASSIUM CHLORIDE ORAL LIQUID 20 MEQ/15 ML PO ONE (14:06)
[2023-11-10] MEDS: DEXTROSE 5%-0.45% SALINE 1,000 ML IV SCH (21:32)
[2023-11-11] MEDS: HYDROmorphone HCl 2 MG/ML VIAL IVPB PRN ×2 (10:43→23:29)
[2023-11-11 10:52] LABS: HEMATOCRIT 27.4 % (32.4-45.2); HEMOGLOBIN 9.3 GM/dL (10.7-15.3); MCH 31.7 pg (25.7-33.7); MCHC 34.1 g/dl (32.0-36.0); MEAN PLT VOLUME 8.2 fl (7.5-11.1); PLATELET COUNT 146 10^3/uL (134-434); RBC 2.95 M/mm3 (3.60-5.2); RDW 21.6 % (11.6-15.6)
[2023-11-11 11:03] LABS: POTASSIUM 3.8 mmol/L (3.5-5.1)
[2023-11-11 11:11] LABS: BLOOD UREA NITROGEN 19.4 mg/dL (7-18); CALCIUM 8.8 mg/dL (8.5-10.1)
[2023-11-11 11:14] LABS: CREATININE 1.3 mg/dL (0.55-1.3)
[2023-11-11] MEDS ORDERED: HYDROmorphone HCl 2 MG/ML VIAL IVPB PRN ×2 (11:51→13:13)
[2023-11-12] MEDS: FLU VACCINE (FLULAVAL) PF 60 MCG/0.5 ML SYRINGE 2023-2024 IM ONE (13:21)
[2023-11-12 18:51] VITALS: RESP 18
[2023-11-13 12:08] VITALS: BP 116/84; PULSE 110; TEMP 98
== END 2023-11-13 16:12 | disposition home or self-care (01) | DRG 811 ==
LOC: JER 22:08 → JERBED 11-03 04:40 → J7W 11-03 06:11
PROVIDERS: ADMIT Internal Medicine; ATTEND Nurse Practitioner Acute Care
PROC: 05HB33Z Insertion of Infusion Device into Right Basilic Vein, Percutaneous Approach (ICD-10-PCS; principal; 2023-11-03)
PROC: B54MZZA Ultrasonography of Right Upper Extremity Veins, Guidance (ICD-10-PCS; 2023-11-03)
DX: D57.01 Hb-SS disease with acute chest syndrome (principal); G92.8 Other toxic encephalopathy; J96.01 Acute respiratory failure with hypoxia; Z94.81 Bone marrow transplant status; J45.901 Unspecified asthma with (acute) exacerbation; N17.9 Acute kidney failure, unspecified; E87.20 Acidosis, unspecified; F11.20 Opioid dependence, uncomplicated; M79.7 Fibromyalgia; J45.909 Unspecified asthma, uncomplicated; L29.9 Pruritus, unspecified; D72.829 Elevated white blood cell count, unspecified; G43.909 Migraine, unspecified, not intractable, without status migrainosus; N18.9 Chronic kidney disease, unspecified; E86.0 Dehydration; E83.41 Hypermagnesemia; F41.9 Anxiety disorder, unspecified; R74.01 Elevation of levels of liver transaminase levels
CPT/HCPCS: 0241U-QW; 36415; 36430; 70450-TC; 70551-TC; 71045-TC-FY; 71250-TC; 76775-TC; 80048; 80053; 80076; 80307; 81003; 82248; 82570; 82803; 82962; 83605; 83615; 83735; 84156; 84484; 84703; 85025; 85027; 85045; 85610; 85730; 86140; 86704; 86706; 86803; 86850; 86900; 86901; 86922; 87040; 87086; 87340; 87517; 90686; 93005; 93010; 93880-TC; 94010; 94640; 97116-GP; 99285-25; G0008; J0131; P9058